=== PATIENT | male | born 1960 | race Hispanic/Latino ===

== ENCOUNTER 2020-10-13 18:07 | Inpatient (IN) | payer OTHER ==
[~2020-10-13 18:07] MED LIST: Iopamidol-370 76% 500 ML 1 ML ONE
--- NOTE | 2020-10-13 19:26 | RAD ---
TWO VIEW CHEST, PA AND LATERAL VIEWS: History: Covid positive. Hypoxia. Comparison: None FINDINGS: There are bilateral confluent infiltrates seen in the periphery of both lungs most prominent in the l zunilda bases. Evidence of bilateral effusions. Heart and mediastinum unremarkable with mild vascular eng orgement. IMPRESSION: Confluent airspace disease involving the periphery of both lungs with consolidation and atelectasis p rominent in the lung bases with evidence of bilateral effusions. Diffuse Covid pneumonia would be evei pected. POS: AGW
[2020-10-13 21:11] LABS: #Eosinphils 0.1 thou/uL (0.0-0.7); #Lymphocytes 0.7 thou/uL (1.20-3.40); #Monocytes 0.3 thou/uL (0.11-0.59); #Neutrophils 12.5 thou/uL (1.40-6.50); %Basophils 0.2 % (0.0-1.0); %Eosinophils 0.5 % (0.0-10.0); %Lymphocytes 5.2 % (21.0-51.0); %Monocytes 2.3 % (0.0-10.0); %Neutrophils 91.8 % (42.0-75.0); Hemoglobin 15.4 g/dL (14.0-18.0); Mean Corpuscular HGB CONC 34.4 g/dL (32.0-36.0); Mean Corpuscular Hemoglobin 32.6 pg (27.0-31.0); Mean Corpuscular Volume 94.9 fL (78.0-98.0); Mean Platelet Volume 6.9 fL (7.4-10.4); Platelet Count 222 thou/uL (130-400); RBC Distribution Width 11.8 % (11.5-14.5); Red Blood Cell (RBC) Count 4.71 mill/uL (4.70-6.10); White Blood Cell (WBC) Count 13.6 thou/uL (4.8-10.8)
[2020-10-13] MEDS ORDERED: Dexamethasone 10 MG/ML VIAL ONE (21:19)
[2020-10-13 21:32] LABS: ALT (SGPT) 96 U/L (8-55); AST (SGOT) 66 U/L (5-34); Albumin 2.6 g/dL (3.4-4.8); Alkaline Phosphatase 296 U/L (40-110); Anion Gap 16 mmol/L (10-20); BUN (Urea Nitrogen) 12 mg/dL (8.4-25.7); CK (CPK) 300 U/L (30-200); Calc. Creatinine Clearance 0 mL/min (70-130); Calcium 7.5 mg/dL (7.8-10.44); Carbon Dioxide 21 mmol/L (23-31); Chloride 98 mmol/L (98-107); Globulin 3.4 g/dL (2.4-3.5); Glucose 259 mg/dL (80-115); Potassium 4.7 mmol/L (3.5-5.1); Sodium 130 mmol/L (136-145)
[2020-10-14 03:44] VITALS: BMI 24.8
--- NOTE | 2020-10-14 05:22 | PDOC.HHP ---
Hospitalist HPI Shortness of breath History of Present Illness: This is a 60-year-old male patient with a history of diabetes mellitus, and hypertension and a recent diagnosis of Covid who presents with worsening shortness of breath and cough Patient was first diagnosed with Covid about 4 weeks ago and he presented to [facility] where he was admitted and discharged. He was discharged on home oxygen on October 02 however for the past few days he has been requiring more and more oxygen to be used with reasonably. His cough is also worsening. EMS was activated and he was found to be hypoxic with his oxygen saturation in the 70s. At presentation however BP was 172/81, pulse 80, respiratory 20, temperature 99.1 saturation 94 on 4 L. His labs showed sodium of 130, bicarb 21 creatinine 0.6. WBC was 13.9 and hemoglobin 15.4. Chest x-ray showed confluent airspace disease with very fearful lungs and consolidation atelectasis prominent in the lung bases with evidence of bilateral pleural effusion. This was arlette to the diffuse Covid pneumonia. He was started on Levaquin for concerns of possible bacterial pneumonia and started on dexamethasone. Hospitalist team consulted for admission Allergies/Adverse Reactions: Allergy/AdvReac Type Severity Reaction Status Date / Time No Known Allergies Allergy Verified 10/14/20 03:46 Home Medications: Medication Instructions Recorded Confirmed Type Benzonatate [Tessalon] 100 mg PO TID 10/14/20 10/14/20 History metFORMIN HCl [Metformin HCl] 500 mg PO BID PRN 10/14/20 10/14/20 History Past History: PMHx: Hypertension, Covid PSHx:None of significance FHx: None of significance Social:No smoking alcohol or drug use history. Hospitalist HPI ROS Constitutional: reports: weakness, malaise. denies: fever, chills, sweats Respiratory: reports: cough, shortness of breath, SOB with excertion. denies: hemoptysis Cardiovascular: denies: chest pain, palpitations, orthopnea, paroxysmal noc. dyspnea Genitourinary: denies: dysuria, frequency, incontinence Musculoskeletal: denies: neck pain, shoulder pain, arm pain Neurological: denies: weakness, numbness, incoordination All other systems reviewed; all pertinent +/- noted in HPI/Subj Hospitalist Exam Vitals: Vital Signs (12 hours) Temp Pulse Resp BP BP Pulse Ox 10/14/20 04:13 90 L 10/14/20 03:51 98.0 F 99 34 H 142/84 H 90 L 10/14/20 03:39 90 L 10/14/20 03:26 97.5 F L 105 H 38 H 165/105 H 77 L Weight Weight 131 lb 6.4 oz General Appearance: awake alert General - other findings: Incessantly cough Eye: PERRL, anicteric sclera ENT: normocephalic atraumatic Heart: RRR, no murmur, no gallops, no rubs Respiratory - other findings: Coarse breath sounds bilaterally. Generalized wheezing. Tachypnea Gastrointestinal: soft, non-tender, non-distended, normal bowel sounds Extremities: no cyanosis, no clubbing Neurological: cranial nerve grossly intact, no weakness, no focal deficits Musculoskeletal: normal tone Psychiatric: normal affect, normal behavior, A&O x 3 Hospitalist Results Result Diagrams: 10/13/20 20:46 10/13/20 20:46 Lab results: Laboratory Last Values WBC 13.6 thou/uL (4.8-10.8) H 10/13/20 20:46 RBC 4.71 mill/uL (4.70-6.10) 10/13/20 20:46 Hgb 15.4 g/dL (14.0-18.0) 10/13/20 20:46 Hct 44.6 % (42.0-52.0) 10/13/20 20:46 MCV 94.9 fL (78.0-98.0) 10/13/20 20:46 MCH 32.6 pg (27.0-31.0) H 10/13/20 20:46 MCHC 34.4 g/dL (32.0-36.0) 10/13/20 20:46 RDW 11.8 % (11.5-14.5) 10/13/20 20:46 Plt Count 222 thou/uL (130-400) 10/13/20 20:46 MPV 6.9 fL (7.4-10.4) L 10/13/20 20:46 Neutrophils % 91.8 % (42.0-75.0) H 10/13/20 20:46 Lymphocytes % 5.2 % (21.0-51.0) L 10/13/20 20:46 Monocytes % 2.3 % (0.0-10.0) 10/13/20 20:46 Eosinophils % 0.5 % (0.0-10.0) 10/13/20 20:46 Basophils % 0.2 % (0.0-1.0) 10/13/20 20:46 Neutrophils # 12.5 thou/uL (1.40-6.50) H 10/13/20 20:46 Lymphocytes # 0.7 thou/uL (1.20-3.40) L 10/13/20 20:46 Monocytes # 0.3 thou/uL (0.11-0.59) 10/13/20 20:46 Eosinophils # 0.1 thou/uL (0.0-0.7) 10/13/20 20:46 Basophils # 0.0 thou/uL (0.0-0.2) 10/13/20 20:46 D-Dimer 12.22 *mcg/mL (0.27-0.43) H 10/13/20 20:46 Sodium 130 mmol/L (136-145) L 10/13/20 20:46 Potassium 4.7 mmol/L (3.5-5.1) 10/13/20 20:46 Chloride 98 mmol/L (98-107) 10/13/20 20:46 Carbon Dioxide 21 mmol/L (23-31) L 10/13/20 20:46 Anion Gap 16 mmol/L (10-20) 10/13/20 20:46 BUN 12 mg/dL (8.4-25.7) 10/13/20 20:46 Creatinine 0.60 mg/dL (0.7-1.3) L 10/13/20 20:46 Estimated GFR (MDRD) Greater than 90 10/13/20 20:46 Glucose 259 mg/dL (80-115) H 10/13/20 20:46 Calcium 7.5 mg/dL (7.8-10.44) L 10/13/20 20:46 Total Bilirubin 1.0 mg/dL (0.2-1.2) 10/13/20 20:46 AST 66 U/L (5-34) H 10/13/20 20:46 ALT 96 U/L (8-55) H 10/13/20 20:46 Alkaline Phosphatase 296 U/L (40-110) H 10/13/20 20:46 Creatine Kinase 300 U/L (30-200) H 10/13/20 20:46 Troponin I 0.011 ng/mL (< 0.028) 10/13/20 20:46 Serum Total Protein 6.0 g/dL (5.8-8.1) 10/13/20 20:46 Albumin 2.6 g/dL (3.4-4.8) L 10/13/20 20:46 Globulin 3.4 g/dL (2.4-3.5) 10/13/20 20:46 Albumin/Globulin Ratio 0.8 g/dL (1.2-2.2) L 10/13/20 20:46 Hospitalist H&P A/P Plan: This is a 60-year-old male patient with a history of hypertension with diagnosed Covid about a month ago presenting with worsening shortness of breath after being discharged from [facility]. Pneumonia due to Covid We will start vitamin C, zinc and steroids Out of the window of remdesivir Consider plasma therapy D-dimer severely elevatedCTA done follow-up to rule out PE Consider ID input for further management. Possible superimposed bacterial pneumonia We will cover him on antibiotics Hyponatremia Likely due to pneumonia We will monitorthis is mild Hyperglycemia Glucose 259 Check A1c Trend CODE STATUSfull code PT prophylaxislevel
--- NOTE | 2020-10-14 08:37 | CT ---
PRELIMINARY REPORT/[facility]/EMERGENCY AFTER HOURS PROCEDURE EXAM: CTA Chest with Intravenous Contrast CLINICAL HISTORY: 60-year-old male presenting with shortness of breath that is worsened over the past several days. Joselyn carey was discharged home from [facility] on 01 September for Covid pneumonia. Patient notes that he began to develop severe shortness of breath and chest pain this evening as well. Patient's oxygen had been turned up to 6 and was supposed to be on for at home and he still felt short of breath. He was found to be hypoxic into the 70s in the waiting room. Patient denies any hemoptysis or history of pulmonary embolism. TECHNIQUE: Axial CTA images of the chest with intravenous contrast. Three-dimensional MIP/volume rendered reform ations were performed. CONTRAST: With; ISOVUE 370,80mL COMPARISON: None provided. FINDINGS: PULMONARY ARTERIES There is no intraluminal filling defect suspicious for PE. AORTA No thoracic aortic aneurysm or dissection. LUNGS There is underlying bronchiectasis and reticular changes compatible with underlying chronic interstit ial disease. Superimposed ill-defined patchy groundglass and solid opacities throughout the visualized lungs are c ompatible with multifocal pneumonia, consistent with COVID-19 pneumonia in the appropriate clinical setting. PLEURAL SPACES Small left pleural effusion. Trace right pleural effusion. HEART AND MEDIASTINUM Mild cardiomegaly. LYMPH NODES Pretracheal lymph node measuring up to 1.1 cm in short axis. BONES No focal osseous abnormality or acute fracture. CHEST WALL AND UPPER ABDOMEN Images through the upper abdomen are unremarkable. The chest wall is unremarkable. IMPRESSION: Underlying chronic interstitial disease including bronchiectasis and reticular changes. Superimposed ill-defined patchy groundglass and solid opacities throughout the visualized lungs are c ompatible with multifocal pneumonia, consistent with COVID-19 pneumonia in the appropriate clinical setting. Small left and trace right pleural effusions. No pulmonary embolism. No thoracic aortic aneurysm or dissection. Mild cardiomegaly. ELECTRONICALLY SIGNED BY: Mary Carmen Hennessy MD Oct 13, 2020 11:38:00 PM TRANSITION RN This report is intended for review by the ordering physician only, in accordance of law. If you recei ve this report in error, please call [facility] at [phone]. FINAL REPORT Emergent after hours CT angiogram thorax with IV contrast and 3-D reconstructions HISTORY: Dyspnea/shortness of breath. COMPARISON: None. IMPRESSION: 1. Chronic interstitial lung changes and areas of mild bronchiectasis predominantly in the lower lobe s with superimposed patchy and groundglass densities throughout the lungs bilaterally which may be related to superimposed atypical pneumonia such as COVID pneumonia in the correct clinical scenario. 2. Small bilateral pleural effusions. 3. No evidence of a pulmonary embolus. 4. Thoracic aorta is normal in caliber without evidence of an aortic dissection. 5. Mild increased in number of mediastinal and bilateral hilar lymph nodes which may be related to re active lymphadenopathy. 6. Hypodense nodule left lobe of thyroid gland measuring 1.7 cm. Follow-up thyroid ultrasound is renny mmended. This finding was discussed with Marcia, charge nurse on the hospital floor on 10/14/2020 at 0834 hours. 7. Borderline cardiomegaly. 8. Findings are in agreement with preliminary report by [facility]. Transcribed Date/Time: 10/14/2020 8:45 AM
[2020-10-14] MEDS ORDERED: FLU VACC QS2020-21(6MOS UP)/PF 60 MCG/0.5 ML SYRINGE IM ONE (09:00)
[2020-10-14] MEDS: Enoxaparin Sodium 40 MG/0.4 ML SYRINGE SC SCH (10:18)
[2020-10-14] MEDS: Dexamethasone 6 MG in Sodium Chloride 0.9% 50 ML IVPB SCH (10:18)
[2020-10-14] MEDS: Ascorbic Acid 500 mg Chewable Tablet PO SCH (10:19)
[2020-10-14] MEDS: Cholecalciferol (Vitamin D3) 400 UNITS TAB PO SCH (10:19)
[2020-10-14] MEDS: Zinc Sulfate 220 MG CAP PO SCH (10:19)
[2020-10-14] MEDS ORDERED: Dextrose 5% in Water 1,000 ML IV PRN (12:26)
[2020-10-14] MEDS ORDERED: HumaLOG 300 UNITS/3 ML VIAL SC PRN (12:26)
[2020-10-14] MEDS ORDERED: Dextrose 50% Abboject 50 ML SYRINGE SLOW IVP PRN (12:26)
--- NOTE | 2020-10-14 13:47 | PDOC.HOSPP ---
- Subjective Encounter Date: 10/14/20 Subjective: Feels better than yesterday. - Objective Vital Signs & Weight: Vital Signs (12 hours) Temp Pulse Resp BP BP Pulse Ox 10/14/20 12:29 98.0 F 107 H 30 H 133/88 94 L 10/14/20 10:43 93 L 10/14/20 09:20 97.1 F L 117 H 32 H 125/70 96 10/14/20 08:00 96 10/14/20 05:20 97.5 F L 89 29 H 144/86 H 98 10/14/20 04:13 90 L 10/14/20 03:51 98.0 F 99 34 H 142/84 H 90 L 10/14/20 03:39 90 L 10/14/20 03:26 97.5 F L 105 H 38 H 165/105 H 77 L Weight Weight 131 lb 6.4 oz I&O: 10/13/20 10/14/20 10/15/20 06:59 06:59 06:59 Intake Total 250 Balance 250 Result Diagrams: 10/13/20 20:46 10/13/20 20:46 Additional Labs: Accuchecks 10/14/20 12:44 POC Glucose 440 H Hospitalist ROS - Medication Medications: Active Medications Generic Name Dose Route Start Last Admin Trade Name Ferq PRN Reason Stop Dose Admin Ascorbic Acid 1,000 mg 10/14/20 09:00 10/14/20 10:19 Ascorbic Acid 500 Mg Chewable Tablet PO 1,000 mg DAILY LOLA Administration Cholecalciferol 400 units 10/14/20 09:00 10/14/20 10:19 Cholecalciferol (Vitamin D3) 400 Units Tab PO 400 units DAILY LOLA Administration Enoxaparin Sodium 40 mg 10/14/20 09:00 10/14/20 10:18 Enoxaparin Sodium 40 Mg/0.4 Ml Syringe SC 40 mg 0900 LOLA Administration Dexamethasone 6 mg/ Sodium 50.6 mls @ 100 mls/hr 10/14/20 09:00 10/14/20 10:18 Chloride IVPB 50.6 mls DAILY LOLA Administration Zinc Sulfate 220 mg 10/14/20 09:00 10/14/20 10:19 Zinc Sulfate 220 Mg Cap PO 220 mg DAILY LOLA Administration Hospitalist Exam Vitals: Vital Signs (12 hours) Temp Pulse Resp BP BP Pulse Ox 10/14/20 12:29 98.0 F 107 H 30 H 133/88 94 L 10/14/20 10:43 93 L 10/14/20 09:20 97.1 F L 117 H 32 H 125/70 96 10/14/20 08:00 96 10/14/20 05:20 97.5 F L 89 29 H 144/86 H 98 10/14/20 04:13 90 L 10/14/20 03:51 98.0 F 99 34 H 142/84 H 90 L 10/14/20 03:39 90 L 10/14/20 03:26 97.5 F L 105 H 38 H 165/105 H 77 L Weight Weight 131 lb 6.4 oz General Appearance: NAD Eye: PERRL, anicteric sclera ENT: normocephalic atraumatic, no oropharyngeal lesions Neck: supple, symmetric, no JVD Heart: RRR, no murmur, no gallops, no rubs Respiratory: rales Gastrointestinal: soft, non-tender, non-distended, normal bowel sounds Extremities: no cyanosis, no clubbing, no edema Skin: normal turgor, no lesions Neurological: cranial nerve grossly intact Hosp A/P (1) Pneumonia due to COVID-19 virus Code(s): U07.1 - COVID-19; J12.82 - PNEUMONIA DUE TO CORONAVIRUS DISEASE 2019 Status: Acute (2) Diabetes Code(s): E11.9 - TYPE 2 DIABETES MELLITUS WITHOUT COMPLICATIONS Status: Acute (3) Hyponatremia Code(s): E87.1 - HYPO-OSMOLALITY AND HYPONATREMIA Status: Acute (4) Rhabdomyolysis Code(s): M62.82 - RHABDOMYOLYSIS Status: Acute - Plan Office today 10/14 Patient is a 60-year-old male who was recently admitted to [facility] for Covid pneumonia and discharged home with oxygen, he was diagnosed with Covid approximately a month ago. He returns our hospital with increased shortness of breath due to worsening of his Covid pneumonia. Pulmonary--- patient does have worsening of his Covid pneumonia, he is started on Decadron, he continues to require high flow oxygen, I will consult pulmonary for further guidance. Renal--- he is hyponatremic I will continue to monitor his sodium. His CK was slightly elevated I will recheck it tomorrow. Endocrinology--- his diabetes is not well controlled he is usually on Metformin, I will start him on insulin sliding scale and Lantus. Patient is on Lovenox for DVT prophylaxis.
--- NOTE | 2020-10-14 14:16 | ULT ---
THYROID ULTRASOUND: HISTORY: Thyroid nodule noted on recent CT ANGIOGRAM OF THE CHEST: FINDINGS: Thyroid isthmus measures 0.49 cm. Right thyroid lobe measures 1.4 x 1.1 x 3.6 cm. Left thyroid lobe measures 1.8 x 1.7 x 3.4 cm. Thyroid nodules: Right thyroid Lobe: No significant nodules. Left thyroid Lobe: There is a predominantly solid nodule in the left thyroid lobe measuring 1.5 x 1.6 x 1.8 cm. Margins are well circumscribed. The nodule is isoechoic. Additional smaller hypoechoic nodule in the super ior pole left thyroid lobe measuring 0.3 x 0.3 x 0.2 cm. IMPRESSION: Solid nodule in the left thyroid lobe. TIRADS calculator score TR3: mildly suspicious. Followup dejuan ging in 1 year is recommended. POS: PPP
[2020-10-14] MEDS: HumaLOG 300 UNITS/3 ML VIAL SC PRN (18:54)
[2020-10-14] MEDS: Insulin Glargine 20 UNITS in Pre-Filled Syringe 1 EACH SC SCH (21:54)
[2020-10-15] MEDS: HumaLOG 300 UNITS/3 ML VIAL SC PRN ×3 (04:53→18:04)
[2020-10-15 05:12] LABS: #Lymphocytes 1.7 thou/uL (1.20-3.40); #Monocytes 0.9 thou/uL (0.11-0.59); #Neutrophils 14.6 thou/uL (1.40-6.50); %Basophils 0.1 % (0.0-1.0); %Eosinophils 0.1 % (0.0-10.0); %Lymphocytes 9.9 % (21.0-51.0); %Monocytes 5.1 % (0.0-10.0); %Neutrophils 84.8 % (42.0-75.0); Hemoglobin 13.9 g/dL (14.0-18.0); Mean Corpuscular HGB CONC 33.6 g/dL (32.0-36.0); Mean Corpuscular Hemoglobin 31.8 pg (27.0-31.0); Mean Corpuscular Volume 94.8 fL (78.0-98.0); Mean Platelet Volume 6.7 fL (7.4-10.4); Platelet Count 254 thou/uL (130-400); RBC Distribution Width 11.9 % (11.5-14.5); Red Blood Cell (RBC) Count 4.35 mill/uL (4.70-6.10); White Blood Cell (WBC) Count 17.3 thou/uL (4.8-10.8)
[2020-10-15 05:33] LABS: Anion Gap 11 mmol/L (10-20); BUN (Urea Nitrogen) 26 mg/dL (8.4-25.7); CK (CPK) 79 U/L (30-200); Calc. Creatinine Clearance 101 mL/min (70-130); Calcium 8.1 mg/dL (7.8-10.44); Carbon Dioxide 23 mmol/L (23-31); Chloride 104 mmol/L (98-107); Glucose 282 mg/dL (80-115); Potassium 4.2 mmol/L (3.5-5.1); Sodium 134 mmol/L (136-145)
[2020-10-15] MEDS: Ascorbic Acid 500 mg Chewable Tablet PO SCH (09:48)
[2020-10-15] MEDS: Enoxaparin Sodium 40 MG/0.4 ML SYRINGE SC SCH (09:49)
[2020-10-15] MEDS: Zinc Sulfate 220 MG CAP PO SCH (09:49)
[2020-10-15] MEDS: Cholecalciferol (Vitamin D3) 400 UNITS TAB PO SCH (09:49)
[2020-10-15] MEDS: Dexamethasone 6 MG in Sodium Chloride 0.9% 50 ML IVPB SCH (09:50)
[2020-10-15] MEDS: Insulin Glargine 20 UNITS in Pre-Filled Syringe 1 EACH SC SCH ×2 (10:18→20:47)
--- NOTE | 2020-10-15 11:27 | CON ---
DATE OF CONSULTATION: 10/15/2020 REASON FOR CONSULTATION: COVID pneumonia. HISTORY OF PRESENT ILLNESS: Mr. Cardoza is a 60-year-old male, who was admitted to [facility] on September 09 with COVID pneumonia. He says his test was positive on the . He stayed at that facility for about a week before being discharged on oxygen 5 L nasal cannula. He came back to the hospital because he was concerned that he was not getting better. He says his O2 saturation at home was running lower than it had been when he was initially released from the hospital. PAST MEDICAL HISTORY: Hypertension. PAST SURGICAL HISTORY: None. SOCIAL HISTORY: He smoked up until about 20 years ago. 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 Does not use illicit drugs. Does not consume any significant quantity of alcohol. FAMILY MEDICAL HISTORY: Unremarkable. ALLERGIES: NONE. REVIEW OF SYSTEMS: Denies any fever or chills. Has had a cough and congestion. No chest pain, hematemesis, melena, hematochezia, hematuria, or dysuria. PHYSICAL EXAMINATION: VITAL SIGNS: Temperature 98.3, pulse 79, respirations 24, O2 sats 97% on 60 L/minute high-flow oxygen, and blood pressure 134/86. He is sitting in bed, is in no acute distress. HEENT: Unremarkable. NECK: No adenopathy or JVD. LUNGS: He has diffuse inspiratory crackles bilaterally. CARDIAC: S1 and S2. Regular. ABDOMEN: Soft and nontender. EXTREMITIES: No clubbing, cyanosis, or edema. LABORATORY DATA: White blood cell count 17.3, hematocrit 41, and platelet count 254. D-dimer 12.22. Sodium 134, potassium 4.2, chloride 104, CO2 of 23, BUN 26, creatinine 0.6, glucose 282. His CT of the chest shows diffuse fibrotic changes especially in the periphery. This is consistent with the later stages of someone who has had COVID pneumonia. ASSESSMENT: COVID pneumonia-first developed about one month ago and now has residual findings of fibrotic lung disease from that. He had no evidence of pulmonary embolism on CT pulmonary angiogram obtained here. RECOMMENDATIONS: This is a tough situation, I agree with the empiric antibiotics in case he could have a secondary infection on top of this. However, this is probably just all COVID, and unfortunately, it will just take time for it to get better. I am not sure steroids would be helpful at all at this point, and I would advocate stopping that completely and probably trying some colchicine and see if that helps. Job ID: [id number]
--- NOTE | 2020-10-15 11:48 | PDOC.HOSPP ---
- Subjective Encounter Date: 10/15/20 Subjective: Patient is doing much better today. - Objective Vital Signs & Weight: Vital Signs (12 hours) Temp Pulse Resp BP Pulse Ox 10/15/20 07:30 98.3 F 79 24 H 134/86 96 10/15/20 04:20 97.5 F L 80 23 H 132/83 95 10/15/20 03:13 96 Weight Weight 131 lb 6.4 oz I&O: 10/14/20 10/15/20 10/16/20 06:59 06:59 06:59 Intake Total 930 Output Total 1680 Balance -750 Result Diagrams: 10/15/20 05:02 10/15/20 05:02 Additional Labs: Accuchecks 10/15/20 10/15/20 10/14/20 10:25 04:28 20:16 POC Glucose 307 H 268 H 410 H 10/14/20 10/14/20 17:05 12:44 POC Glucose 385 H 440 H Hospitalist ROS - Medication Medications: Active Medications Generic Name Dose Route Start Last Admin Trade Name Freq PRN Reason Stop Dose Admin Ascorbic Acid 1,000 mg 10/14/20 09:00 10/15/20 09:48 Ascorbic Acid 500 Mg Chewable Tablet PO 1,000 mg DAILY LOLA Administration Cholecalciferol 400 units 10/14/20 09:00 10/15/20 09:49 Cholecalciferol (Vitamin D3) 400 Units Tab PO 400 units DAILY LOLA Administration Enoxaparin Sodium 40 mg 10/14/20 09:00 10/15/20 09:49 Enoxaparin Sodium 40 Mg/0.4 Ml Syringe SC 40 mg 0900 LOLA Administration Insulin Glargine 20 units/ 0.2 mls @ 0 mls/hr 10/14/20 21:00 10/14/20 21:54 Miscellaneous Medication SC 0.2 mls HS LOLA Administration Insulin Glargine 20 units/ 0.2 mls @ 0 mls/hr 10/15/20 09:00 10/15/20 10:18 Miscellaneous Medication SC 0.2 mls QAM LOLA Administration Insulin Human Lispro 0 units 10/14/20 13:43 10/15/20 04:53 Humalog 300 Units/3 Ml Vial SC 9 unit .AGGRESSIVE SLIDING PRN Administration Aggressive Correctional Scale Sodium Chloride 10 ml 10/15/20 09:00 10/15/20 09:49 Flush - Normal Saline 10 Ml Syringe IVF 10 ml Q12HR LOLA Administration Zinc Sulfate 220 mg 10/14/20 09:00 10/15/20 09:49 Zinc Sulfate 220 Mg Cap PO 220 mg DAILY LOLA Administration Hospitalist Exam Vitals: Vital Signs (12 hours) Temp Pulse Resp BP Pulse Ox 10/15/20 07:30 98.3 F 79 24 H 134/86 96 10/15/20 04:20 97.5 F L 80 23 H 132/83 95 10/15/20 03:13 96 Weight Weight 131 lb 6.4 oz General Appearance: NAD, awake alert Eye: PERRL ENT: normocephalic atraumatic Neck: supple, symmetric Heart: RRR, no murmur, no gallops, murmur present Respiratory: CTAB, no wheezes, no rales Gastrointestinal: soft, non-tender, non-distended Extremities: no cyanosis, no clubbing Hosp A/P (1) Pneumonia due to COVID-19 virus Code(s): U07.1 - COVID-19; J12.82 - PNEUMONIA DUE TO CORONAVIRUS DISEASE 2019 Status: Acute (2) Diabetes Code(s): E11.9 - TYPE 2 DIABETES MELLITUS WITHOUT COMPLICATIONS Status: Acute (3) Hyponatremia Code(s): E87.1 - HYPO-OSMOLALITY AND HYPONATREMIA Status: Acute (4) Rhabdomyolysis Code(s): M62.82 - RHABDOMYOLYSIS Status: Acute - Plan Plan for today 10/14 Patient is a 60-year-old male who was recently admitted to [facility] for Covid pneumonia and discharged home with oxygen, he was diagnosed with Covid approximately a month ago. He returns our hospital with increased shortness of breath due to worsening of his Covid pneumonia. Pulmonary--- patient does have worsening of his Covid pneumonia, he is started on Decadron, he continues to require high flow oxygen, I will consult pulmonary for further guidance. Renal--- he is hyponatremic I will continue to monitor his sodium. His CK was slightly elevated I will recheck it tomorrow. Endocrinology--- his diabetes is not well controlled he is usually on Metformin, I will start him on insulin sliding scale and Lantus. Patient is on Lovenox for DVT prophylaxis. Plan for today 10/15 Pulmonary--- patient was seen by pulmonology today, he appears to be doing much better today, Decadron was stopped, continue the current antibiotics. Renal--- his electrolytes today improve. Endocrinology--- he is currently on Lantus, I added the dose in the morning, his glycemic levels should improve with stopping the Decadron. Patient is on Lovenox for DVT prophylaxis. We will consider consulting physical therapy tomorrow hopefully he will be off the high flow.
--- NOTE | 2020-10-15 20:20 | PQF ---
CLINICAL DOCUMENTATION CLARIFICATION FORM: Dear Dr. Paul Date: 10/15/20 Please exercise your independent, professional judgment in responding to the clarification form. Clinical indicators are provided on the bottom of this form for your review. Please check appropriate box(es): [ y ] Acute Respiratory Failure: [ y ] with Hypoxia [ ] with Hypercapnia [ ] Acute On Chronic Respiratory Failure: [ ] with Hypoxia [ ] with Hypercapnia [ ] Chronic Respiratory Failure only [ ] with Hypoxia [ ] with Hypercapnia [ ] Other diagnosis [ ] Unable to determine In addition, please specify: Present on Admission (POA): [y ] Yes [ ] No [ ] Unable to determine For continuity of documentation, please document condition throughout progress notes and discharge summary. Thank You. To be completed by CDI/Coding staff for physician review: CLINICAL INDICATORS - SIGNS / SYMPTOMS / LABS / RESULTS AND LOCATION IN MR ER NOTE: "FOUND TO BE HYPOXIC INTO THE 70s IN THE WAITING ROOM" PULSE 108 RR 40 RISK FACTORS/ RESULTS AND LOCATION IN MR COVID PNEUMONIA (H&P) TREATMENTS / RESULTS AND LOCATION IN IV LEVAQUIN (ER) DEXAMETHASONE (ER-10/15) IV CEFEPIME (10/15) PULMONARY CONSULT - CRYS NONREBREATHER MASK IN ER REQUIRING HIGH FLOW OXYGEN (PN 10/15- KIET) Acute Respiratory Failure: ABG pH < 7.35 or > 7.45; Decreased oxygen saturation (<90% room air or < 95% on oxygen); PCO2 > 50 mm Hg; PO2 < 60 mm Hg; Labored or rapid respirations ARDS: Dx Criteria [Ridgely ARDS]: Respiratory symptoms within one week of a known clinical insult (e.g. shock, infection, surgery, trauma) Bilateral opacities in CXR/Chest CT not due to CHF or fluid CDS Signature: Imani Correa RN Phone #: [phone] Date: 10/15/20 This is a permanent part of the Medical Record [facility]
--- NOTE | 2020-10-15 20:28 | PQF ---
CLINICAL DOCUMENTATION CLARIFICATION FORM: Dear Dr. Paul Date: 10/15/20 Please exercise your independent, professional judgment in responding to the clarification form. Clinical indicators are provided on the bottom of this form for your review. Please check appropriate box(es): [ y ] Sepsis due to: covid 19 possibly superimposed bacterial pneumonia [ ] Severe sepsis with associated acute organ dysfunction: [ ] Acute Respiratory Failure [ ] Acute Kidney injury w/o ATN [ ] Acute Kidney Injury w ATN [ ] Encephalopathy (metabolic) (septic) [ ] Disseminated Intravascular Coagulopathy (DIC) [ ] Hepatic Failure [ ] Additional/Other: please specify: [ ] Localized infection without sepsis [ ] SIRS due to non-infectious process (please specify etiology) [ ] with organ dysfunction [ ] without organ dysfunction [ ] Other diagnosis [ ] Unable to determine In addition, please specify: Present on Admission (POA): [ y ] Yes [ ] No [ ] Unable to determine For continuity of documentation, please document condition throughout progress notes and discharge summary. Thank You. To be completed by CDI/Coding staff for physician review: CLINICAL INDICATORS - SIGNS / SYMPTOMS / LABS / RESULTS AND LOCATION IN MR WBC 10/13: 13.6 WBC 10/15: 17.3 CRP 10/14: 11.90 PULSE 108 RR 40 RISK FACTORS / RESULTS AND LOCATION IN MR COVID PNEUMONIA (H&P) TREATMENTS / RESULTS AND LOCATION IN MR IV LEVAQUIN (ER) DEXAMETHASONE (ER-10/15) IV CEFEPIME (10/15) PULMONARY CONSULT NONREBREATHER MASK IN ER HIGH FLOW OXYGEN (ON 10/15- ) BLOOD CULTURES 10/14 CDS Signature: Imani Correa RN Phone #: [phone] Date: 10/15/20 This is a permanent part of the Medical Record [facility]
[2020-10-15] MEDS: Cefepime 1 GM in Sodium Chloride 0.9% 100 ML IVPB SCH (20:49)
[2020-10-15] MEDS: Colchicine 0.3 MG TAB PO SCH (22:38)
[2020-10-16] MEDS: Cholecalciferol (Vitamin D3) 400 UNITS TAB PO SCH (09:39)
[2020-10-16] MEDS: Enoxaparin Sodium 40 MG/0.4 ML SYRINGE SC SCH (09:39)
[2020-10-16] MEDS: Ascorbic Acid 500 mg Chewable Tablet PO SCH (09:39)
[2020-10-16] MEDS: Zinc Sulfate 220 MG CAP PO SCH (09:39)
[2020-10-16] MEDS: Cefepime 1 GM in Sodium Chloride 0.9% 100 ML IVPB SCH ×2 (09:40→22:33)
[2020-10-16] MEDS ORDERED: Colchicine 0.3 MG TAB PO SCH (09:45)
[2020-10-16] MEDS: Insulin Glargine 20 UNITS in Pre-Filled Syringe 1 EACH SC SCH ×2 (09:48→22:35)
[2020-10-16] MEDS: Colchicine 0.3 MG TAB PO SCH ×2 (09:48→22:35)
[2020-10-16] MEDS: HumaLOG 300 UNITS/3 ML VIAL SC PRN (12:08)
--- NOTE | 2020-10-16 19:41 | PDOC.HOSPP ---
- Subjective Encounter Date: 10/16/20 Subjective: He continues to improve still reports some shortness of breath when he speaks. - Objective Vital Signs & Weight: Vital Signs (12 hours) Temp Pulse Resp BP Pulse Ox 10/16/20 17:32 78 161/104 H 10/16/20 15:37 98.7 F 76 20 180/93 H 98 10/16/20 13:47 97.7 F 81 20 140/87 97 10/16/20 12:09 95 10/16/20 10:09 100 10/16/20 08:43 98.9 F 82 20 150/93 H 92 L Weight Weight 131 lb 6.4 oz I&O: 10/15/20 10/16/20 10/17/20 06:59 06:59 06:59 Intake Total 930 1650 720 Output Total 1680 900 Balance -750 1650 -180 Result Diagrams: 10/15/20 05:02 10/15/20 05:02 Additional Labs: Accuchecks 10/16/20 10/16/20 10/16/20 16:52 10:47 05:07 POC Glucose 115 H 205 H 111 H 10/15/20 20:42 POC Glucose 230 H Hospitalist ROS - Medication Medications: Active Medications Generic Name Dose Route Start Last Admin Trade Name Freq PRN Reason Stop Dose Admin Ascorbic Acid 1,000 mg 10/14/20 09:00 10/16/20 09:39 Ascorbic Acid 500 Mg Chewable Tablet PO 1,000 mg DAILY LOLA Administration Cholecalciferol 400 units 10/14/20 09:00 10/16/20 09:39 Cholecalciferol (Vitamin D3) 400 Units Tab PO 400 units DAILY LOLA Administration Colchicine 0.3 mg 10/15/20 21:00 10/16/20 09:48 Colchicine 0.3 Mg Tab PO 0.3 mg BID LOLA Administration Enoxaparin Sodium 40 mg 10/14/20 09:00 10/16/20 09:39 Enoxaparin Sodium 40 Mg/0.4 Ml Syringe SC 40 mg 0900 LOLA Administration Insulin Glargine 20 units/ 0.2 mls @ 0 mls/hr 10/14/20 21:00 10/15/20 20:47 Miscellaneous Medication SC 0.2 mls HS LOLA Administration Insulin Glargine 20 units/ 0.2 mls @ 0 mls/hr 10/15/20 09:00 10/16/20 09:48 Miscellaneous Medication SC 0.2 mls QAM LOLA Administration Cefepime HCl 1 gm/ Sodium 100 mls @ 200 mls/hr 10/15/20 21:00 10/16/20 09:40 Chloride IVPB 100 mls Q12HR LOLA Administration Insulin Human Lispro 0 units 10/14/20 13:43 10/16/20 12:08 Humalog 300 Units/3 Ml Vial SC 6 unit .AGGRESSIVE SLIDING PRN Administration Aggressive Correctional Scale Sodium Chloride 10 ml 10/15/20 09:00 10/16/20 09:39 Flush - Normal Saline 10 Ml Syringe IVF 10 ml Q12HR LOLA Administration Zinc Sulfate 220 mg 10/14/20 09:00 10/16/20 09:39 Zinc Sulfate 220 Mg Cap PO 220 mg DAILY LOLA Administration Hospitalist Exam Vitals: Vital Signs (12 hours) Temp Pulse Resp BP Pulse Ox 10/16/20 17:32 78 161/104 H 10/16/20 15:37 98.7 F 76 20 180/93 H 98 10/16/20 13:47 97.7 F 81 20 140/87 97 10/16/20 12:09 95 10/16/20 10:09 100 10/16/20 08:43 98.9 F 82 20 150/93 H 92 L Weight Weight 131 lb 6.4 oz General Appearance: NAD Eye: PERRL ENT: normocephalic atraumatic Neck: supple, symmetric Heart: RRR, no murmur Respiratory: CTAB, no wheezes, no rales Gastrointestinal: soft, non-tender, non-distended Hosp A/P (1) Pneumonia due to COVID-19 virus Code(s): U07.1 - COVID-19; J12.82 - PNEUMONIA DUE TO CORONAVIRUS DISEASE 2019 Status: Acute (2) Diabetes Code(s): E11.9 - TYPE 2 DIABETES MELLITUS WITHOUT COMPLICATIONS Status: Acute (3) Hyponatremia Code(s): E87.1 - HYPO-OSMOLALITY AND HYPONATREMIA Status: Acute (4) Rhabdomyolysis Code(s): M62.82 - RHABDOMYOLYSIS Status: Acute - Plan Plan for 10/14 Patient is a 60-year-old male who was recently admitted to [facility] for Covid pneumonia and discharged home with oxygen, he was diagnosed with Covid ap proximately a month ago. He returns our hospital with increased shortness of breath due to worsening of his Covid pneumonia. Pulmonary--- patient does have worsening of his Covid pneumonia, he is started on Decadron, he continues to require high flow oxygen, I will consult pulmonary for further guidance. Renal--- he is hyponatremic I will continue to monitor his sodium. His CK was slightly elevated I will recheck it tomorrow. Endocrinology--- his diabetes is not well controlled he is usually on Metformin, I will start him on insulin sliding scale and Lantus. Patient is on Lovenox for DVT prophylaxis. Plan for today 10/15 Pulmonary--- patient was seen by pulmonology today, he appears to be doing much better today, Decadron was stopped, continue the current antibiotics. Renal--- his electrolytes today improve. Endocrinology--- he is currently on Lantus, I added the dose in the morning, his glycemic levels should improve with stopping the Decadron. Patient is on Lovenox for DVT prophylaxis. We will consider consulting physical therapy tomorrow hopefully he will be off the high flow. Plan for today 10/16 Patient continues to improve, his glycemia is not very well controlled still, I will restart him on his Metformin and continue with the Lantus, I did consult physical therapy to see him since he is now on a nasal cannula. Tomorrow I will give him a lab holiday , since his blood work has been stable.
[2020-10-17] MEDS ORDERED: Non-Formulary Item 1 EACH (Metformin Hcl [Metformin Hcl] 1,000 MG Tablet) PO SCH (08:00)
[2020-10-17] MEDS: Cefepime 1 GM in Sodium Chloride 0.9% 100 ML IVPB SCH ×2 (08:55→21:30)
[2020-10-17] MEDS: Ascorbic Acid 500 mg Chewable Tablet PO SCH (08:55)
[2020-10-17] MEDS: Colchicine 0.3 MG TAB PO SCH ×2 (08:56→21:31)
[2020-10-17] MEDS: Zinc Sulfate 220 MG CAP PO SCH (08:56)
[2020-10-17] MEDS: Enoxaparin Sodium 40 MG/0.4 ML SYRINGE SC SCH ×2 (08:56→21:31)
[2020-10-17] MEDS: Cholecalciferol (Vitamin D3) 400 UNITS TAB PO SCH (08:56)
[2020-10-17] MEDS: Insulin Glargine 20 UNITS in Pre-Filled Syringe 1 EACH SC SCH ×2 (08:58→22:35)
[2020-10-17 10:18] LABS: #Basophils 0.1 thou/uL (0.0-0.2); #Eosinphils 0.2 thou/uL (0.0-0.7); #Lymphocytes 1.4 thou/uL (1.20-3.40); #Monocytes 0.6 thou/uL (0.11-0.59); #Neutrophils 7.8 thou/uL (1.40-6.50); %Basophils 1.1 % (0.0-1.0); %Lymphocytes 14.2 % (21.0-51.0); %Monocytes 6.3 % (0.0-10.0); %Neutrophils 76.6 % (42.0-75.0); Hemoglobin 15.1 g/dL (14.0-18.0); Mean Corpuscular HGB CONC 34.6 g/dL (32.0-36.0); Mean Corpuscular Hemoglobin 32.8 pg (27.0-31.0); Mean Corpuscular Volume 94.7 fL (78.0-98.0); Mean Platelet Volume 6.6 fL (7.4-10.4); Platelet Count 262 thou/uL (130-400); RBC Distribution Width 11.8 % (11.5-14.5); Red Blood Cell (RBC) Count 4.62 mill/uL (4.70-6.10); White Blood Cell (WBC) Count 10.1 thou/uL (4.8-10.8)
[2020-10-17 10:36] LABS: Anion Gap 11 mmol/L (10-20); BUN (Urea Nitrogen) 13 mg/dL (8.4-25.7); Calc. Creatinine Clearance 126 mL/min (70-130); Carbon Dioxide 24 mmol/L (23-31); Chloride 99 mmol/L (98-107); Glucose 106 mg/dL (80-115); Sodium 130 mmol/L (136-145)
--- NOTE | 2020-10-17 15:55 | EKG ---
Test Reason : SOB Blood Pressure : / mmHG Vent. Rate : 107 BPM Atrial Rate : 107 BPM P-R Int : 156 ms QRS Dur : 078 ms QT Int : 340 ms P-R-T Axes : 024 -05 023 degrees QTc Int : 453 ms Sinus tachycardia Otherwise normal ECG Confirmed by SHARI KENYON ([id number]), digital editor SERGO THORNTON ([id number]) on 10/17/2020 3:55:16 PM Referred By: Confirmed By:SHARI KENYON
[2020-10-17] MEDS: metFORMIN 500 MG TAB PO SCH (16:42)
[2020-10-17] MEDS: HumaLOG 300 UNITS/3 ML VIAL SC PRN (16:47)
--- NOTE | 2020-10-17 17:11 | PDOC.HOSPP ---
- Subjective Encounter Date: 10/17/20 (f/u acute resp failure) Encounter Time: 17:09 Subjective: Pt reports his breathing does not feel as good today as yesterday. He is back on high flow oxygen. He denies any cough. He denies n/v/abd pain/diarrhea. - Objective Vital Signs & Weight: Vital Signs (12 hours) Temp Pulse Pulse Resp BP BP BP 10/17/20 16:00 98.6 F 98 20 156/78 H 10/17/20 15:25 125 H 167/101 H 198/120 H 10/17/20 08:35 98.1 F 89 28 H 148/93 H Pulse Ox Pulse Ox Pulse Ox 10/17/20 16:00 97 10/17/20 15:25 100 94 L 10/17/20 08:35 97 Weight Weight 131 lb 6.4 oz I&O: 10/16/20 10/17/20 10/18/20 06:59 06:59 06:59 Intake Total 1650 720 Output Total 900 950 Balance 1650 -180 -950 Result Diagrams: 10/17/20 09:58 10/17/20 09:58 Additional Labs: Accuchecks 10/17/20 10/17/20 10/17/20 10:59 06:18 05:57 POC Glucose 135 H 137 H 77 10/16/20 10/16/20 20:24 16:52 POC Glucose 155 H 115 H EKG Reviewed by me: Yes (tele - sinus 60-90's) Hospitalist ROS - Medication Medications: Active Medications Generic Name Dose Route Start Last Admin Trade Name Cynthia PRN Reason Stop Dose Admin Ascorbic Acid 1,000 mg 10/14/20 09:00 10/17/20 08:55 Ascorbic Acid 500 Mg Chewable Tablet PO 1,000 mg DAILY LOLA Administration Cholecalciferol 400 units 10/14/20 09:00 10/17/20 08:56 Cholecalciferol (Vitamin D3) 400 Units Tab PO 400 units DAILY LOLA Administration Colchicine 0.3 mg 10/15/20 21:00 10/17/20 08:56 Colchicine 0.3 Mg Tab PO 0.3 mg BID LOLA Administration Enoxaparin Sodium 40 mg 10/14/20 09:00 10/17/20 08:56 Enoxaparin Sodium 40 Mg/0.4 Ml Syringe SC 40 mg 0900 LOLA Administration Insulin Glargine 20 units/ 0.2 mls @ 0 mls/hr 10/14/20 21:00 10/16/20 22:35 Miscellaneous Medication SC 0.2 mls HS LOLA Administration Insulin Glargine 20 units/ 0.2 mls @ 0 mls/hr 10/15/20 09:00 10/17/20 08:58 Miscellaneous Medication SC Not Given QAM LOLA Cefepime HCl 1 gm/ Sodium 100 mls @ 200 mls/hr 10/15/20 21:00 10/17/20 08:55 Chloride IVPB 100 mls Q12HR LOLA Administration Insulin Human Lispro 0 units 10/14/20 13:43 10/17/20 16:47 Humalog 300 Units/3 Ml Vial SC 11 unit .AGGRESSIVE SLIDING PRN Administration Aggressive Correctional Scale Metformin HCl 500 mg 10/17/20 17:00 10/17/20 16:42 Metformin 500 Mg Tab PO 500 mg BID-WM LOLA Administration Sodium Chloride 10 ml 10/15/20 09:00 10/17/20 08:57 Flush - Normal Saline 10 Ml Syringe IVF 10 ml Q12HR LOLA Administration Zinc Sulfate 220 mg 10/14/20 09:00 10/17/20 08:56 Zinc Sulfate 220 Mg Cap PO 220 mg DAILY LOLA Administration Hospitalist Exam Vitals: Vital Signs (12 hours) Temp Pulse Pulse Resp BP BP BP 10/17/20 16:00 98.6 F 98 20 156/78 H 10/17/20 15:25 125 H 167/101 H 198/120 H 10/17/20 08:35 98.1 F 89 28 H 148/93 H Pulse Ox Pulse Ox Pulse Ox 10/17/20 16:00 97 10/17/20 15:25 100 94 L 10/17/20 08:35 97 Weight Weight 131 lb 6.4 oz General Appearance: NAD Heart: RRR, no murmur Respiratory: no wheezes, no ronchi Respiratory - other findings: faint rales in left base Gastrointestinal: soft, non-tender, non-distended, normal bowel sounds Extremities: no cyanosis, no clubbing, no edema Psychiatric: normal affect Hosp A/P (1) Acute respiratory failure due to COVID-19 Code(s): U07.1 - COVID-19; J96.00 - ACUTE RESPIRATORY FAILURE, UNSP W HYPOXIA OR HYPERCAPNIA Status: Acute (2) Diabetes Code(s): E11.9 - TYPE 2 DIABETES MELLITUS WITHOUT COMPLICATIONS Status: Chronic Qualifiers: Diabetes mellitus type: type 2 Diabetes mellitus intermediate insulin use: without long term care phlebotomist use (3) Hyponatremia Code(s): E87.1 - HYPO-OSMOLALITY AND HYPONATREMIA Status: Acute (4) Pneumonia due to COVID-19 virus Code(s): U07.1 - COVID-19; J12.82 - PNEUMONIA DUE TO CORONAVIRUS DISEASE 2019 Status: Acute - Plan Acute resp failure secondary to covid pneumonia in the sub-acute phase with increased oxygen use - appreciate Pulm consult - on cefepime - continue - resume dexamethasone - recheck inflammatory markers in AM DM - blood sugar control improved. - low blood sugar of 77 this morning - d/c AM lantus - with the initiation of steroids, will continue the evening lantus. Most recent blood sugar 306 Hyponatremia - stable, monitor dvt prophy - lovenox - will increase to BID due to increased risk of VTE with COVID gi prophy - will add ppi while on steroids code status full reviewed plan of care with patient through the hospital estate tax examiner system, no questions or further needs at end of eval.
[2020-10-17] MEDS ORDERED: Dexamethasone 4 mg/ml Vial SLOW IVP SCH (18:00)
[2020-10-18 05:18] LABS: #Lymphocytes 1.5 thou/uL (1.20-3.40); #Monocytes 0.4 thou/uL (0.11-0.59); #Neutrophils 7.6 thou/uL (1.40-6.50); %Basophils 0.1 % (0.0-1.0); %Eosinophils 0.4 % (0.0-10.0); %Lymphocytes 15.5 % (21.0-51.0); %Monocytes 3.9 % (0.0-10.0); Hemoglobin 15.1 g/dL (14.0-18.0); Mean Corpuscular HGB CONC 35.3 g/dL (32.0-36.0); Mean Corpuscular Hemoglobin 33.7 pg (27.0-31.0); Mean Corpuscular Volume 95.5 fL (78.0-98.0); Mean Platelet Volume 7.2 fL (7.4-10.4); Platelet Count 269 thou/uL (130-400); RBC Distribution Width 11.7 % (11.5-14.5); Red Blood Cell (RBC) Count 4.49 mill/uL (4.70-6.10); White Blood Cell (WBC) Count 9.5 thou/uL (4.8-10.8)
[2020-10-18 05:31] LABS: Anion Gap 12 mmol/L (10-20); BUN (Urea Nitrogen) 13 mg/dL (8.4-25.7); CRP (Inflammatory) 3.22 mg/dL (= or < 0.5); Calc. Creatinine Clearance 121 mL/min (70-130); Carbon Dioxide 23 mmol/L (23-31); Chloride 98 mmol/L (98-107); Glucose 209 mg/dL (80-115); Potassium 4.5 mmol/L (3.5-5.1); Sodium 128 mmol/L (136-145)
[2020-10-18] MEDS: HumaLOG 300 UNITS/3 ML VIAL SC PRN ×3 (06:23→16:48)
[2020-10-18] MEDS: Ascorbic Acid 500 mg Chewable Tablet PO SCH (08:08)
[2020-10-18] MEDS: Zinc Sulfate 220 MG CAP PO SCH (08:09)
[2020-10-18] MEDS: Cholecalciferol (Vitamin D3) 400 UNITS TAB PO SCH (08:09)
[2020-10-18] MEDS: Enoxaparin Sodium 40 MG/0.4 ML SYRINGE SC SCH ×2 (08:09→20:23)
[2020-10-18] MEDS: Colchicine 0.3 MG TAB PO SCH ×2 (08:09→20:25)
[2020-10-18] MEDS: metFORMIN 500 MG TAB PO SCH (08:09)
[2020-10-18] MEDS: Cefepime 1 GM in Sodium Chloride 0.9% 100 ML IVPB SCH ×2 (08:10→20:26)
[2020-10-18] MEDS ORDERED: Iopamidol-370 76% 500 ML 1 ML ONE (09:33)
--- NOTE | 2020-10-18 11:24 | PDOC.HOSPP ---
- Subjective Encounter Date: 10/18/20 (f/u acute resp failure) Encounter Time: 11:23 Subjective: Pt reports feeling short of breath with eating and has to stop or slow down. His breathing is about the same as yesterday, is requiring more oxygen. He reports this is a big difference compared to 2 days ago - his daughter agrees by phone. She translated per the patient's request. - Objective Vital Signs & Weight: Vital Signs (12 hours) Temp Pulse Resp BP Pulse Ox 10/18/20 08:00 98.1 F 94 20 159/100 H 96 10/18/20 04:27 100 10/18/20 04:00 98.1 F 90 20 115/82 100 10/18/20 00:22 97.9 F 99 20 138/88 98 Weight Weight 131 lb 6.4 oz I&O: 10/17/20 10/18/20 10/19/20 06:59 06:59 06:59 Intake Total 720 Output Total 900 950 Balance -180 -950 Result Diagrams: 10/18/20 04:27 10/18/20 04:27 Additional Labs: Accuchecks 10/18/20 10/17/20 10/17/20 05:45 20:37 16:44 POC Glucose 172 H 128 H 314 H 10/17/20 10:59 POC Glucose 135 H EKG Reviewed by me: Yes (tele - sinus 80-100s) Hospitalist ROS - Medication Medications: Active Medications Generic Name Dose Route Start Last Admin Trade Name Freq PRN Reason Stop Dose Admin Ascorbic Acid 1,000 mg 10/14/20 09:00 10/18/20 08:08 Ascorbic Acid 500 Mg Chewable Tablet PO 1,000 mg DAILY LOLA Administration Cholecalciferol 400 units 10/14/20 09:00 10/18/20 08:09 Cholecalciferol (Vitamin D3) 400 Units Tab PO 400 units DAILY LOLA Administration Colchicine 0.3 mg 10/15/20 21:00 10/18/20 08:09 Colchicine 0.3 Mg Tab PO 0.3 mg BID LOLA Administration Dexamethasone 6 mg 10/17/20 18:00 10/17/20 17:20 Dexamethasone 4 Mg/Ml Vial SLOW IVP 6 mg Q24HR LOLA Administration Enoxaparin Sodium 40 mg 10/17/20 21:00 10/18/20 08:09 Enoxaparin Sodium 40 Mg/0.4 Ml Syringe SC 40 mg BID LOLA Administration Insulin Glargine 20 units/ 0.2 mls @ 0 mls/hr 10/14/20 21:00 10/17/20 22:35 Miscellaneous Medication SC Not Given HS LOLA Cefepime HCl 1 gm/ Sodium 100 mls @ 200 mls/hr 10/15/20 21:00 10/18/20 08:10 Chloride IVPB 100 mls Q12HR LOLA Administration Insulin Human Lispro 0 units 10/14/20 13:43 10/18/20 06:23 Humalog 300 Units/3 Ml Vial SC 3 unit .AGGRESSIVE SLIDING PRN Administration Aggressive Correctional Scale Sodium Chloride 10 ml 10/15/20 09:00 10/18/20 08:10 Flush - Normal Saline 10 Ml Syringe IVF 10 ml Q12HR LOLA Administration Zinc Sulfate 220 mg 10/14/20 09:00 10/18/20 08:09 Zinc Sulfate 220 Mg Cap PO 220 mg DAILY LOLA Administration Hospitalist Exam Vitals: Vital Signs (12 hours) Temp Pulse Resp BP Pulse Ox 10/18/20 08:00 98.1 F 94 20 159/100 H 96 10/18/20 04:27 100 10/18/20 04:00 98.1 F 90 20 115/82 100 10/18/20 00:22 97.9 F 99 20 138/88 98 Weight Weight 131 lb 6.4 oz General Appearance: NAD General - other findings: speaking in shorter sentences - appears more dyspneic today Heart: RRR, no murmur Respiratory: no wheezes, no rales, no ronchi Respiratory - other findings: shallow breaths Gastrointestinal: soft, non-tender, non-distended, normal bowel sounds Extremities: no cyanosis, no clubbing, no edema Psychiatric: normal affect Hosp A/P (1) Acute respiratory failure due to COVID-19 Code(s): U07.1 - COVID-19; J96.00 - ACUTE RESPIRATORY FAILURE, UNSP W HYPOXIA OR HYPERCAPNIA Status: Acute (2) Diabetes Code(s): E11.9 - TYPE 2 DIABETES MELLITUS WITHOUT COMPLICATIONS Status: Chronic Qualifiers: Diabetes mellitus type: type 2 Diabetes mellitus nursing home insulin use: without nursing home use (3) Hyponatremia Code(s): E87.1 - HYPO-OSMOLALITY AND HYPONATREMIA Status: Acute (4) Pneumonia due to COVID-19 virus Code(s): U07.1 - COVID-19; J12.82 - PNEUMONIA DUE TO CORONAVIRUS DISEASE 2018 Status: Acute - Plan Worsening sx despite being over a month from dx of COVID - requsted re-eval by Pulmonology, will order CT-angio to rule out PE - will increase steroids to BID - continue cefepime - inflammatory markers are either the same or improved Acute resp failure secondary to covid pneumonia in the sub-acute phase with increased oxygen use Start IVF for hydration and to help reduce risk of renal injury with contrast study DM - blood sugar control improved. - continue daily lantus Hyponatremia - slightly worse, starting IVF for hydration, will monitor. - free water fluid restriction dvt prophy - lovenox - increased to BID yesterday gi prophy - ppi while on steroids code status full reviewed plan of care with patient/daughter, no questions or further needs at end of eval. addendum 18:34 - Reviewed CT scan and pneumomediastinum, no tx available per Dr. Alarcon - no change to care.
[2020-10-18] MEDS: Sodium Chloride 0.9% 1,000 ML IV SCH (11:30)
[2020-10-18] MEDS ORDERED: Dexamethasone 4 mg/ml Vial ONE (11:43)
[2020-10-18] MEDS ORDERED: Dexamethasone 4 mg/ml Vial SLOW IVP SCH (11:45)
--- NOTE | 2020-10-18 14:17 | CT ---
CT ANGIO OF CHEST PERFORMD WITH INTRAVENOUS CONTRAST ENHANCEMENT WITH 3D RECONSTRUCTIONS: History: One-month past Covid diagnosis, worsening shortness of breath. Comparison: CT 10-13-2020 FINDINGS: Extensive ground glass and fibrotic lung changes seen in both lung pete are again demonstrated. Edmar e of the ground glass parenchymal changes in the right lower lobe have increased as compared to the p rior examination, although otherwise, changes are relatively stable. Patient has developed a pneumomediastinum. This is probably on the basis of lung ridgedity. I do not see any pneumothorax. This finding is new as compared to the prior exam. Thoracic aorta is normal in caliber. Motion artifact degrades detail but I see no evidence for pulmonary embolus. Visualized liver parenchyma shows no focal findings. IMPRESSION: 1. Development of a pneumomediastinum. This is probably on the basis of the fibrotic lung change . Air is seen extending in the mediastinum mainly along the anterior mediastinum, but also slightly m ore along the right side of the mediastinum that extends minimally into the right neck region. No pne umothorax seen associated with this. 2. Extensive fibrotic lung changes and ground glass opacities, fairly similar to the previous ex am. Some of the changes in the right lung base have worsened. 3. No CT evidence for pulmonary embolus. POS: OFF
--- NOTE | 2020-10-18 14:41 | PRG ---
DATE OF SERVICE: 10/18/2020 SUBJECTIVE: I was asked to see Mr. Cardoza again by Dr. Burrell. He was concerned about increasing oxygen requirements. The patient actually looks better than when I saw him the other day. He does remain on high-flow oxygen at about 85% and that is basically where he has been over the last 36 hours. However, back on October 14 and , he was also around 75% to 80% FiO2. OBJECTIVE: VITAL SIGNS: His temperature is 97.8, pulse 90, respirations 20, O2 saturation running 96% to 100% on the settings. HEENT: Unremarkable. NECK: No adenopathy or JVD. LUNGS: Crackles bilaterally. CARDIAC: S1, S2. Regular. ABDOMEN: Soft. EXTREMITIES: No edema. I reviewed his CT pulmonary angiogram. If he has pulmonary emboli, they are very small, and there are some opacities present in the right lower lobe, but this may be motion artifact. The main significant finding is terrible interstitial lung disease in the periphery, starting mid lung working down toward the bases. 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 PLAN: Continue supportive care with steroids, anticoagulation, and oxygen. This patient may be on oxygen for the remainder of his life. Unfortunately, there is not much help we can provide other than what he is currently getting. Job ID: [id number]
[2020-10-18] MEDS: Dexamethasone 4 mg/ml Vial SLOW IVP SCH (20:22)
[2020-10-18] MEDS: Insulin Glargine 20 UNITS in Pre-Filled Syringe 1 EACH SC SCH (20:51)
[2020-10-19] MEDS: Sodium Chloride 0.9% 1,000 ML IV SCH ×2 (00:44→14:49)
[2020-10-19 05:00] LABS: #Lymphocytes 1.9 thou/uL (1.20-3.40); #Monocytes 0.3 thou/uL (0.11-0.59); #Neutrophils 9.5 thou/uL (1.40-6.50); %Basophils 0.4 % (0.0-1.0); %Eosinophils 0.2 % (0.0-10.0); %Lymphocytes 15.8 % (21.0-51.0); %Monocytes 2.7 % (0.0-10.0); Hemoglobin 14.6 g/dL (14.0-18.0); Mean Corpuscular HGB CONC 34.5 g/dL (32.0-36.0); Mean Corpuscular Hemoglobin 32.6 pg (27.0-31.0); Mean Corpuscular Volume 94.4 fL (78.0-98.0); Mean Platelet Volume 6.8 fL (7.4-10.4); Platelet Count 311 thou/uL (130-400); RBC Distribution Width 11.7 % (11.5-14.5); Red Blood Cell (RBC) Count 4.49 mill/uL (4.70-6.10); White Blood Cell (WBC) Count 11.8 thou/uL (4.8-10.8)
[2020-10-19 05:19] LABS: Anion Gap 12 mmol/L (10-20); BUN (Urea Nitrogen) 17 mg/dL (8.4-25.7); CRP (Inflammatory) 1.37 mg/dL (= or < 0.5); Calc. Creatinine Clearance 119 mL/min (70-130); Calcium 7.8 mg/dL (7.8-10.44); Carbon Dioxide 22 mmol/L (23-31); Chloride 105 mmol/L (98-107); Glucose 147 mg/dL (80-115); Potassium 4.2 mmol/L (3.5-5.1); Sodium 135 mmol/L (136-145)
[2020-10-19] MEDS: Zinc Sulfate 220 MG CAP PO SCH (09:02)
[2020-10-19] MEDS: Cholecalciferol (Vitamin D3) 400 UNITS TAB PO SCH (09:02)
[2020-10-19] MEDS: Cefepime 1 GM in Sodium Chloride 0.9% 100 ML IVPB SCH ×2 (09:04→20:34)
[2020-10-19] MEDS: Enoxaparin Sodium 40 MG/0.4 ML SYRINGE SC SCH ×2 (09:04→20:33)
[2020-10-19] MEDS: Ascorbic Acid 500 mg Chewable Tablet PO SCH (09:04)
[2020-10-19] MEDS: Dexamethasone 4 mg/ml Vial SLOW IVP SCH ×2 (09:05→20:33)
[2020-10-19] MEDS: Colchicine 0.3 MG TAB PO SCH ×2 (10:01→20:36)
--- NOTE | 2020-10-19 11:00 | PDOC.HOSPP ---
- Subjective Encounter Date: 10/19/20 Encounter Time: 10:43 Subjective: comfortable on high flow O2 - Objective Vital Signs & Weight: Vital Signs (12 hours) Temp Pulse Resp BP Pulse Ox 10/19/20 07:55 97.7 F 83 23 H 133/95 H 94 L 10/19/20 03:40 97.8 F 73 16 146/83 H 100 10/19/20 03:07 99 Weight Weight 131 lb 6.4 oz I&O: 10/18/20 10/19/20 10/20/20 06:59 06:59 06:59 Intake Total 1965 Output Total 950 1000 Balance -950 965 Result Diagrams: 10/19/20 04:46 10/19/20 04:46 Additional Labs: Accuchecks 10/18/20 10/18/20 10/18/20 20:44 15:36 11:28 POC Glucose 152 H 280 H 175 H Hospitalist ROS - Medication Medications: Active Medications Generic Name Dose Route Start Last Admin Trade Name Freq PRN Reason Stop Dose Admin Ascorbic Acid 1,000 mg 10/14/20 09:00 10/19/20 09:04 Ascorbic Acid 500 Mg Chewable Tablet PO 1,000 mg DAILY LOLA Administration Cholecalciferol 400 units 10/14/20 09:00 10/19/20 09:02 Cholecalciferol (Vitamin D3) 400 Units Tab PO 400 units DAILY LOLA Administration Colchicine 0.3 mg 10/15/20 21:00 10/19/20 10:01 Colchicine 0.3 Mg Tab PO 0.3 mg BID LOLA Administration Dexamethasone 6 mg 10/18/20 21:00 10/19/20 09:05 Dexamethasone 4 Mg/Ml Vial SLOW IVP 6 mg BID LOLA Administration Enoxaparin Sodium 40 mg 10/17/20 21:00 10/19/20 09:04 Enoxaparin Sodium 40 Mg/0.4 Ml Syringe SC 40 mg BID LOLA Administration Insulin Glargine 20 units/ 0.2 mls @ 0 mls/hr 10/14/20 21:00 10/18/20 20:51 Miscellaneous Medication SC 0.2 mls HS LOLA Administration Cefepime HCl 1 gm/ Sodium 100 mls @ 200 mls/hr 10/15/20 21:00 10/19/20 09:04 Chloride IVPB 100 mls Q12HR LOLA Administration Sodium Chloride 1,000 mls @ 75 mls/hr 10/18/20 11:30 10/19/20 00:44 Normal Saline 0.9% IV 1,000 mls .[id number] LOLA Administration Insulin Human Lispro 0 units 10/14/20 13:43 10/18/20 16:48 Humalog 300 Units/3 Ml Vial SC 9 unit .AGGRESSIVE SLIDING PRN Administration Aggressive Correctional Scale Pantoprazole Sodium 40 mg 10/19/20 09:00 10/19/20 09:03 Pantoprazole 40 Mg Tab PO 40 mg DAILY LOLA Administration Sodium Chloride 10 ml 10/15/20 09:00 10/19/20 10:00 Flush - Normal Saline 10 Ml Syringe IVF 10 ml Q12HR LOLA Administration Zinc Sulfate 220 mg 10/14/20 09:00 10/19/20 09:02 Zinc Sulfate 220 Mg Cap PO 220 mg DAILY LOLA Administration Hospitalist Exam Vitals: Vital Signs (12 hours) Temp Pulse Resp BP Pulse Ox 10/19/20 07:55 97.7 F 83 23 H 133/95 H 94 L 10/19/20 03:40 97.8 F 73 16 146/83 H 100 10/19/20 03:07 99 Weight Weight 131 lb 6.4 oz General Appearance: awake alert Neck: no JVD Heart: RRR, no murmur Respiratory - other findings: fine rales Gastrointestinal: soft, normal bowel sounds Extremities: no edema Hosp A/P (1) Acute respiratory failure due to COVID-19 Code(s): U07.1 - COVID-19; J96.00 - ACUTE RESPIRATORY FAILURE, UNSP W HYPOXIA OR HYPERCAPNIA Status: Acute (2) Hyponatremia Code(s): E87.1 - HYPO-OSMOLALITY AND HYPONATREMIA Status: Acute (3) Pneumonia due to COVID-19 virus Code(s): U07.1 - COVID-19; J12.82 - PNEUMONIA DUE TO CORONAVIRUS DISEASE 2019 Status: Acute (4) Diabetes Code(s): E11.9 - TYPE 2 DIABETES MELLITUS WITHOUT COMPLICATIONS Status: Chronic Qualifiers: Diabetes mellitus type: type 2 Diabetes mellitus correction insulin use: without correction use - Plan cont high flow O2 accu/ss/ add AM glargine. cont metformin, PM glargine
[2020-10-19] MEDS: HumaLOG 300 UNITS/3 ML VIAL SC PRN ×2 (11:24→18:00)
[2020-10-19] MEDS: Insulin Glargine 20 UNITS in Pre-Filled Syringe 1 EACH SC SCH (20:34)
[2020-10-20] MEDS: Sodium Chloride 0.9% 1,000 ML IV SCH ×2 (05:44→20:53)
[2020-10-20] MEDS: Enoxaparin Sodium 40 MG/0.4 ML SYRINGE SC SCH ×2 (08:52→20:54)
[2020-10-20] MEDS: Zinc Sulfate 220 MG CAP PO SCH (08:53)
[2020-10-20] MEDS: Dexamethasone 4 mg/ml Vial SLOW IVP SCH ×2 (08:53→20:53)
[2020-10-20] MEDS: Cholecalciferol (Vitamin D3) 400 UNITS TAB PO SCH (08:53)
[2020-10-20] MEDS: Ascorbic Acid 500 mg Chewable Tablet PO SCH (08:53)
[2020-10-20] MEDS: Colchicine 0.3 MG TAB PO SCH ×2 (08:55→20:54)
[2020-10-20] MEDS: Cefepime 1 GM in Sodium Chloride 0.9% 100 ML IVPB SCH ×2 (08:56→20:53)
[2020-10-20] MEDS: Insulin Glargine 10 UNITS in Pre-Filled Syringe 1 EACH SC SCH (09:00)
--- NOTE | 2020-10-20 09:03 | PDOC.HOSPP ---
- Subjective Encounter Date: 10/20/20 Encounter Time: 09:01 Subjective: some tightness in chest, sob - Objective Vital Signs & Weight: Vital Signs (12 hours) Temp Pulse Resp BP Pulse Ox 10/20/20 07:16 94 L 10/20/20 04:05 98.2 F 70 20 140/87 99 10/20/20 02:35 100 Weight Weight 131 lb 6.4 oz I&O: 10/19/20 10/20/20 10/21/20 06:59 06:59 06:59 Intake Total 1964 2022 Output Total 1000 950 Balance 965 1073 Result Diagrams: 10/19/20 04:46 10/19/20 04:46 Additional Labs: Accuchecks 10/19/20 10/19/20 10/19/20 20:09 17:05 10:43 POC Glucose 199 H 245 H 294 H 10/18/20 15:36 POC Glucose 280 H Hospitalist ROS - Medication Medications: Active Medications Generic Name Dose Route Start Last Admin Trade Name Freq PRN Reason Stop Dose Admin Ascorbic Acid 1,000 mg 10/14/20 09:00 10/20/20 08:53 Ascorbic Acid 500 Mg Chewable Tablet PO 1,000 mg DAILY LOLA Administration Cholecalciferol 400 units 10/14/20 09:00 10/20/20 08:53 Cholecalciferol (Vitamin D3) 400 Units Tab PO 400 units DAILY LOLA Administration Colchicine 0.3 mg 10/15/20 21:00 10/20/20 08:55 Colchicine 0.3 Mg Tab PO 0.3 mg BID LOLA Administration Dexamethasone 6 mg 10/18/20 21:00 10/20/20 08:53 Dexamethasone 4 Mg/Ml Vial SLOW IVP 6 mg BID LOLA Administration Enoxaparin Sodium 40 mg 10/17/20 21:00 10/20/20 08:52 Enoxaparin Sodium 40 Mg/0.4 Ml Syringe SC 40 mg BID LOLA Administration Insulin Glargine 20 units/ 0.2 mls @ 0 mls/hr 10/14/20 21:00 10/19/20 20:34 Miscellaneous Medication SC 0.2 mls HS LOLA Administration Cefepime HCl 1 gm/ Sodium 100 mls @ 200 mls/hr 10/15/20 21:00 10/20/20 08:56 Chloride IVPB 100 mls Q12HR LOLA Administration Sodium Chloride 1,000 mls @ 75 mls/hr 10/18/20 11:30 10/20/20 05:44 Normal Saline 0.9% IV 1,000 mls .[id number] LOLA Administration Insulin Human Lispro 0 units 10/14/20 13:43 10/19/20 18:00 Humalog 300 Units/3 Ml Vial SC 6 unit .AGGRESSIVE SLIDING PRN Administration Aggressive Correctional Scale Pantoprazole Sodium 40 mg 10/19/20 09:00 10/20/20 08:53 Pantoprazole 40 Mg Tab PO 40 mg DAILY LOLA Administration Sodium Chloride 10 ml 10/15/20 09:00 10/20/20 08:57 Flush - Normal Saline 10 Ml Syringe IVF 10 ml Q12HR LOLA Administration Zinc Sulfate 220 mg 10/14/20 09:00 10/20/20 08:53 Zinc Sulfate 220 Mg Cap PO 220 mg DAILY LOLA Administration Hospitalist Exam Vitals: Vital Signs (12 hours) Temp Pulse Resp BP Pulse Ox 10/20/20 07:16 94 L 10/20/20 04:05 98.2 F 70 20 140/87 99 10/20/20 02:35 100 Weight Weight 131 lb 6.4 oz General Appearance: awake alert Neck: no JVD Heart: RRR, no murmur Respiratory - other findings: coarse BS with fine rales Gastrointestinal: soft, non-tender, normal bowel sounds Extremities: no edema Hosp A/P (1) Acute respiratory failure due to COVID-19 Code(s): U07.1 - COVID-19; J96.00 - ACUTE RESPIRATORY FAILURE, UNSP W HYPOXIA OR HYPERCAPNIA Status: Acute (2) Hyponatremia Code(s): E87.1 - HYPO-OSMOLALITY AND HYPONATREMIA Status: Acute (3) Pneumonia due to COVID-19 virus Code(s): U07.1 - COVID-19; J12.82 - PNEUMONIA DUE TO CORONAVIRUS DISEASE 2019 Status: Acute (4) Diabetes Code(s): E11.9 - TYPE 2 DIABETES MELLITUS WITHOUT COMPLICATIONS Status: Chronic Qualifiers: Diabetes mellitus type: type 2 Diabetes mellitus fdc insulin use: without marine oil terminal superintendent use - Plan cont high flow O2 accu/ss/ add AM glargine. cont metformin, PM glargine add albuteral inhaler EKG, Troponin x3
[2020-10-20] MEDS: Albuterol 200 PUFF (6.7GM INHALER) INH SCH ×3 (10:15→18:37)
[2020-10-20 11:08] LABS: Troponin I Less than 0.010 ng/mL (< 0.028)
[2020-10-20 12:44] LABS: Troponin I Less than 0.010 ng/mL (< 0.028)
[2020-10-20] MEDS: HumaLOG 300 UNITS/3 ML VIAL SC PRN ×2 (12:54→17:30)
[2020-10-20 14:13] LABS: Troponin I Less than 0.010 ng/mL (< 0.028)
--- NOTE | 2020-10-20 14:58 | PDOC.BPN ---
- Brief Progress Note Encounter Date: 10/20/20 Encounter Time: 14:56 EEKG- non-specific ST abnormality, trop nl x 3. suspect chest tightness due to conid-cont albuteral inhaler
[2020-10-20] MEDS: Insulin Glargine 20 UNITS in Pre-Filled Syringe 1 EACH SC SCH (20:56)
--- NOTE | 2020-10-20 22:17 | EKG ---
Test Reason : Blood Pressure : / mmHG Vent. Rate : 081 BPM Atrial Rate : 081 BPM P-R Int : 168 ms QRS Dur : 084 ms QT Int : 418 ms P-R-T Axes : 030 001 027 degrees QTc Int : 485 ms Normal sinus rhythm Nonspecific T wave abnormality Prolonged QT Abnormal ECG When compared with ECG of 13-OCT-2020 20:31, Nonspecific T wave abnormality now evident in Lateral leads Confirmed by Clifton SERRA ([id number]) on 10/20/2020 10:17:02 PM Referred By: DAIJA Confirmed By:Clifton SERRA
[2020-10-21] MEDS: Albuterol 200 PUFF (6.7GM INHALER) INH SCH ×4 (07:32→18:29)
[2020-10-21] MEDS: Cefepime 1 GM in Sodium Chloride 0.9% 100 ML IVPB SCH ×2 (08:03→20:51)
[2020-10-21] MEDS: Enoxaparin Sodium 40 MG/0.4 ML SYRINGE SC SCH ×2 (08:04→20:54)
[2020-10-21] MEDS: Dexamethasone 4 mg/ml Vial SLOW IVP SCH ×2 (08:04→20:53)
[2020-10-21] MEDS: Cholecalciferol (Vitamin D3) 400 UNITS TAB PO SCH (08:05)
[2020-10-21] MEDS: Ascorbic Acid 500 mg Chewable Tablet PO SCH (08:05)
[2020-10-21] MEDS: Zinc Sulfate 220 MG CAP PO SCH (08:05)
[2020-10-21] MEDS: Colchicine 0.3 MG TAB PO SCH ×2 (08:09→20:53)
[2020-10-21] MEDS: Insulin Glargine 10 UNITS in Pre-Filled Syringe 1 EACH SC SCH (10:26)
[2020-10-21] MEDS: HumaLOG 300 UNITS/3 ML VIAL SC PRN ×3 (13:06→21:12)
[2020-10-21] MEDS: Sodium Chloride 0.9% 1,000 ML IV SCH (13:22)
--- NOTE | 2020-10-21 15:46 | PDOC.HOSPP ---
- Subjective Encounter Date: 10/21/20 Encounter Time: 15:44 Subjective: some subjective SOB. has been transitioned to 3-4 LiO2 per NC. O2 sat 92+/- - Objective Vital Signs & Weight: Vital Signs (12 hours) Temp Pulse Pulse Pulse Resp BP BP 10/21/20 11:15 98.6 F 106 H 28 H 10/21/20 11:05 90 90 149/82 H 147/81 H 10/21/20 08:09 10/21/20 07:56 98.3 F 78 30 H 10/21/20 07:32 BP Pulse Ox Pulse Ox Pulse Ox 10/21/20 11:15 147/81 H 97 10/21/20 11:05 89 L 97 10/21/20 08:09 90 L 10/21/20 07:56 147/85 H 90 L 10/21/20 07:32 91 L Weight Weight 131 lb 6.4 oz I&O: 10/20/20 10/21/20 10/22/20 06:59 06:59 06:59 Intake Total 2022 Output Total 950 Balance 1073 Result Diagrams: 10/19/20 04:46 10/19/20 04:46 Additional Labs: Accuchecks 10/21/20 10/21/20 10/20/20 11:15 05:58 20:19 POC Glucose 250 H 118 H 271 H 10/20/20 10/20/20 16:38 05:35 POC Glucose 218 H 114 H Hospitalist ROS - Medication Medications: Active Medications Generic Name Dose Route Start Last Admin Trade Name Freq PRN Reason Stop Dose Admin Albuterol Sulfate 2 puff 10/20/20 11:00 10/21/20 13:41 Albuterol 200 Puff (6.7gm Inhaler) INH 2 puff QID-RT LOLA Administration Ascorbic Acid 1,000 mg 10/14/20 09:00 10/21/20 08:05 Ascorbic Acid 500 Mg Chewable Tablet PO 1,000 mg DAILY LOLA Administration Cholecalciferol 400 units 10/14/20 09:00 10/21/20 08:05 Cholecalciferol (Vitamin D3) 400 Units Tab PO 400 units DAILY LOLA Administration Colchicine 0.3 mg 10/15/20 21:00 10/21/20 08:09 Colchicine 0.3 Mg Tab PO 0.3 mg BID LOLA Administration Dexamethasone 6 mg 10/18/20 21:00 10/21/20 08:04 Dexamethasone 4 Mg/Ml Vial SLOW IVP 6 mg BID LOLA Administration Enoxaparin Sodium 40 mg 10/17/20 21:00 10/21/20 08:04 Enoxaparin Sodium 40 Mg/0.4 Ml Syringe SC 40 mg BID LOLA Administration Insulin Glargine 20 units/ 0.2 mls @ 0 mls/hr 10/14/20 21:00 10/20/20 20:56 Miscellaneous Medication SC 0.2 mls HS LOLA Administration Cefepime HCl 1 gm/ Sodium 100 mls @ 200 mls/hr 10/15/20 21:00 10/21/20 08:03 Chloride IVPB 100 mls Q12HR LOLA Administration Sodium Chloride 1,000 mls @ 75 mls/hr 10/18/20 11:30 10/21/20 13:22 Normal Saline 0.9% IV 1,000 mls .[id number] LOLA Administration Insulin Glargine 10 units/ 0.1 mls @ 0 mls/hr 10/20/20 09:00 10/21/20 10:26 Miscellaneous Medication SC 0.1 mls QAM LOLA Administration Insulin Human Lispro 0 units 10/14/20 13:43 10/21/20 13:06 Humalog 300 Units/3 Ml Vial SC 6 unit .AGGRESSIVE SLIDING PRN Administration Aggressive Correctional Scale Pantoprazole Sodium 40 mg 10/19/20 09:00 10/21/20 08:06 Pantoprazole 40 Mg Tab PO 40 mg DAILY LOLA Administration Sodium Chloride 10 ml 10/15/20 09:00 10/21/20 08:08 Flush - Normal Saline 10 Ml Syringe IVF 10 ml Q12HR LOLA Administration Zinc Sulfate 220 mg 10/14/20 09:00 10/21/20 08:05 Zinc Sulfate 220 Mg Cap PO 220 mg DAILY LOLA Administration Hospitalist Exam Vitals: Vital Signs (12 hours) Temp Pulse Pulse Pulse Resp BP BP 10/21/20 11:15 98.6 F 106 H 28 H 10/21/20 11:05 90 90 149/82 H 147/81 H 10/21/20 08:09 10/21/20 07:56 98.3 F 78 30 H 10/21/20 07:32 BP Pulse Ox Pulse Ox Pulse Ox 10/21/20 11:15 147/81 H 97 10/21/20 11:05 89 L 97 10/21/20 08:09 90 L 10/21/20 07:56 147/85 H 90 L 10/21/20 07:32 91 L Weight Weight 131 lb 6.4 oz General Appearance: awake alert Neck: no JVD Heart: RRR Respiratory: CTAB Respiratory - other findings: scant fine rales Gastrointestinal: soft, non-distended, no palpable masses Extremities: no edema Hosp A/P (1) Acute respiratory failure due to COVID-19 Code(s): U07.1 - COVID-19; J96.00 - ACUTE RESPIRATORY FAILURE, UNSP W HYPOXIA OR HYPERCAPNIA Status: Acute (2) Hyponatremia Code(s): E87.1 - HYPO-OSMOLALITY AND HYPONATREMIA Status: Acute (3) Pneumonia due to COVID-19 virus Code(s): U07.1 - COVID-19; J12.82 - PNEUMONIA DUE TO CORONAVIRUS DISEASE 2019 Status: Acute (4) Diabetes Code(s): E11.9 - TYPE 2 DIABETES MELLITUS WITHOUT COMPLICATIONS Status: Chronic Qualifiers: Diabetes mellitus type: type 2 Diabetes mellitus skilled nursing insulin use: without intermission coordinator use - Plan now on 3Li O2 per [place] accu/ss/ add AM glargine. cont metformin, PM glargine albuteral inhaler check cbc, bmp in AM
[2020-10-21] MEDS ORDERED: Cepastat Lozenges 1 LOZ PO PRN (16:47)
[2020-10-21] MEDS: Insulin Glargine 20 UNITS in Pre-Filled Syringe 1 EACH SC SCH (20:55)
[2020-10-22] MEDS: Sodium Chloride 0.9% 1,000 ML IV SCH (05:02)
[2020-10-22 05:23] LABS: Anion Gap 10 mmol/L (10-20); BUN (Urea Nitrogen) 10 mg/dL (8.4-25.7); Band 6 % (5-11); Calc. Creatinine Clearance 133 mL/min (70-130); Calcium 7.6 mg/dL (7.8-10.44); Carbon Dioxide 25 mmol/L (23-31); Chloride 103 mmol/L (98-107); Glucose 113 mg/dL (80-115); Hemoglobin 14.2 g/dL (14.0-18.0); Lymphocytes 12 % (21-51); MDiff Complete? YES; Mean Corpuscular HGB CONC 34.1 g/dL (32.0-36.0); Mean Corpuscular Hemoglobin 32.3 pg (27.0-31.0); Mean Corpuscular Volume 94.6 fL (78.0-98.0); Mean Platelet Volume 6.9 fL (7.4-10.4); Monocytes 6 % (0-10); Neutrophil 72 % (42-75); Platelet Count 303 thou/uL (130-400); Platelet Morphology Comment Appears Adequate; Potassium 3.8 mmol/L (3.5-5.1); RBC Morphology Normal; Reactive Lymphocytes 4 % (0-10); Red Blood Cell (RBC) Count 4.39 mill/uL (4.70-6.10); Sodium 134 mmol/L (136-145); White Blood Cell (WBC) Count 12.1 thou/uL (4.8-10.8)
[2020-10-22] MEDS: Albuterol 200 PUFF (6.7GM INHALER) INH SCH ×4 (07:37→23:01)
[2020-10-22] MEDS: Ascorbic Acid 500 mg Chewable Tablet PO SCH (08:48)
[2020-10-22] MEDS: Cholecalciferol (Vitamin D3) 400 UNITS TAB PO SCH (08:49)
[2020-10-22] MEDS: Cefepime 1 GM in Sodium Chloride 0.9% 100 ML IVPB SCH ×2 (08:49→20:26)
[2020-10-22] MEDS: Colchicine 0.3 MG TAB PO SCH ×2 (08:50→20:27)
[2020-10-22] MEDS: Dexamethasone 4 mg/ml Vial SLOW IVP SCH ×2 (08:50→20:27)
[2020-10-22] MEDS: Enoxaparin Sodium 40 MG/0.4 ML SYRINGE SC SCH ×2 (08:51→20:26)
[2020-10-22] MEDS: Insulin Glargine 10 UNITS in Pre-Filled Syringe 1 EACH SC SCH (08:52)
[2020-10-22] MEDS: Zinc Sulfate 220 MG CAP PO SCH (08:53)
[2020-10-22] MEDS: HumaLOG 300 UNITS/3 ML VIAL SC PRN ×2 (11:18→16:06)
--- NOTE | 2020-10-22 11:45 | PDOC.HOSPP ---
- Subjective Encounter Date: 10/22/20 Encounter Time: 11:43 Subjective: comfortable at rest. some DUMONT - Objective Vital Signs & Weight: Vital Signs (12 hours) Temp Pulse Pulse Pulse Resp BP BP 10/22/20 09:35 89 87 149/90 H 151/87 H 10/22/20 05:30 10/22/20 04:30 98.1 F 67 20 BP Pulse Ox Pulse Ox Pulse Ox 10/22/20 09:35 94 L 95 10/22/20 05:30 99 10/22/20 04:30 132/89 100 Weight Admit Weight 131 lb 6.4 oz Weight 131 lb 6.4 oz I&O: 10/21/20 10/22/20 10/23/20 06:59 06:59 06:59 Intake Total 700 Output Total 950 Balance -250 Result Diagrams: 10/22/20 04:42 10/22/20 04:42 Additional Labs: Accuchecks 10/22/20 10/21/20 10/21/20 10:58 20:09 16:33 POC Glucose 324 H 297 H 243 H Hospitalist ROS - Medication Medications: Active Medications Generic Name Dose Route Start Last Admin Trade Name Freq PRN Reason Stop Dose Admin Albuterol Sulfate 2 puff 10/20/20 11:00 10/22/20 11:09 Albuterol 200 Puff (6.7gm Inhaler) INH 2 puff QID-RT LOLA Administration Ascorbic Acid 1,000 mg 10/14/20 09:00 10/22/20 08:48 Ascorbic Acid 500 Mg Chewable Tablet PO 500 mg DAILY LOLA Administration Cholecalciferol 400 units 10/14/20 09:00 10/22/20 08:49 Cholecalciferol (Vitamin D3) 400 Units Tab PO 400 units DAILY LOLA Administration Colchicine 0.3 mg 10/15/20 21:00 10/22/20 08:50 Colchicine 0.3 Mg Tab PO 0.3 mg BID LOLA Administration Dexamethasone 6 mg 10/18/20 21:00 10/22/20 08:50 Dexamethasone 4 Mg/Ml Vial SLOW IVP 6 mg BID LOLA Administration Enoxaparin Sodium 40 mg 10/17/20 21:00 10/22/20 08:51 Enoxaparin Sodium 40 Mg/0.4 Ml Syringe SC 40 mg BID LOLA Administration Insulin Glargine 20 units/ 0.2 mls @ 0 mls/hr 10/14/20 21:00 10/21/20 20:55 Miscellaneous Medication SC 0.2 mls HS LOLA Administration Cefepime HCl 1 gm/ Sodium 100 mls @ 200 mls/hr 10/15/20 21:00 10/22/20 08:49 Chloride IVPB 100 mls Q12HR LOLA Administration Sodium Chloride 1,000 mls @ 75 mls/hr 10/18/20 11:30 10/22/20 05:02 Normal Saline 0.9% IV 1,000 mls .[id number] LOLA Administration Insulin Glargine 10 units/ 0.1 mls @ 0 mls/hr 10/20/20 09:00 10/22/20 08:52 Miscellaneous Medication SC 0.1 mls QAM LOLA Administration Insulin Human Lispro 0 units 10/14/20 13:43 10/22/20 11:18 Humalog 300 Units/3 Ml Vial SC 11 unit .AGGRESSIVE SLIDING PRN Administration Aggressive [employer]al Scale Pantoprazole Sodium 40 mg 10/19/20 09:00 10/22/20 08:52 Pantoprazole 40 Mg Tab PO 40 mg DAILY LOLA Administration Sodium Chloride 10 ml 10/15/20 09:00 10/22/20 08:53 Flush - Normal Saline 10 Ml Syringe IVF 10 ml Q12HR LOLA Administration Throat Lozenges 1 jenifer 10/21/20 16:47 10/21/20 19:22 Cepastat Lozenges 1 Jenifer PO 1 jenifer Q1H PRN Administration Cough Zinc Sulfate 220 mg 10/14/20 09:00 10/22/20 08:53 Zinc Sulfate 220 Mg Cap PO 220 mg DAILY LOLA Administration Hospitalist Exam Vitals: Vital Signs (12 hours) Temp Pulse Pulse Pulse Resp BP BP 10/22/20 09:35 89 87 149/90 H 151/87 H 10/22/20 05:30 10/22/20 04:30 98.1 F 67 20 BP Pulse Ox Pulse Ox Pulse Ox 10/22/20 09:35 94 L 95 10/22/20 05:30 99 10/22/20 04:30 132/89 100 Weight Admit Weight 131 lb 6.4 oz Weight 131 lb 6.4 oz General Appearance: awake alert Neck: no JVD Heart: RRR, no murmur Respiratory - other findings: good BS, mild post fine rales Gastrointestinal: soft, normal bowel sounds Extremities: no edema Hosp A/P (1) Acute respiratory failure due to COVID-19 Code(s): U07.1 - COVID-19; J96.00 - ACUTE RESPIRATORY FAILURE, UNSP W HYPOXIA OR HYPERCAPNIA Status: Acute (2) Hyponatremia Code(s): E87.1 - HYPO-OSMOLALITY AND HYPONATREMIA Status: Acute (3) Pneumonia due to COVID-19 virus Code(s): U07.1 - COVID-19; J12.82 - PNEUMONIA DUE TO CORONAVIRUS DISEASE 2019 Status: Acute (4) Diabetes Code(s): E11.9 - TYPE 2 DIABETES MELLITUS WITHOUT COMPLICATIONS Status: [facility] Qualifiers: Diabetes mellitus type: type 2 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 cont metformin, PM glargine albuteral inhaler
[2020-10-22] MEDS: Insulin Glargine 20 UNITS in Pre-Filled Syringe 1 EACH SC SCH (20:36)
[2020-10-23] MEDS: Albuterol 200 PUFF (6.7GM INHALER) INH SCH ×4 (05:12→19:46)
[2020-10-23] MEDS: HumaLOG 300 UNITS/3 ML VIAL SC PRN ×4 (05:16→21:35)
[2020-10-23] MEDS ORDERED: Calcium Carbonate 500 MG ChewTAB PO PRN (08:13)
[2020-10-23] MEDS ORDERED: HYDROcodone/Acetaminophen 5/325 mg Tablet PO PRN (08:13)
[2020-10-23] MEDS ORDERED: Senokot S 8.6-50 MG TAB PO PRN (08:13)
[2020-10-23] MEDS ORDERED: GUAIFENESIN SF SOLN 200 MG/10 ML UDCUP PO PRN (08:13)
[2020-10-23] MEDS ORDERED: Ondansetron ODT 4 MG TAB PO PRN (08:13)
[2020-10-23] MEDS ORDERED: Ondansetron PF 4 MG/2 ML Vial IVP PRN (08:13)
[2020-10-23] MEDS ORDERED: Loperamide HCl 2 MG CAP PO PRN (08:13)
[2020-10-23] MEDS ORDERED: Benzonatate 100 MG CAP PO PRN (08:13)
[2020-10-23] MEDS ORDERED: Loratadine 10 MG TAB PO PRN (08:13)
[2020-10-23] MEDS ORDERED: Sodium Chloride 0.65% Nasal 44 ML BOT EA NARE PRN (08:13)
[2020-10-23] MEDS ORDERED: hydrALAZINE 20 MG/ML VIAL SLOW IVP PRN (08:13)
[2020-10-23] MEDS ORDERED: Zolpidem Tartrate 5 MG TAB PO PRN (08:13)
[2020-10-23] MEDS ORDERED: Bisacodyl 5 MG TAB PO PRN (08:13)
[2020-10-23] MEDS: Dexamethasone 4 mg/ml Vial SLOW IVP SCH (09:32)
[2020-10-23] MEDS: Ascorbic Acid 500 mg Chewable Tablet PO SCH (09:32)
[2020-10-23] MEDS: Enoxaparin Sodium 40 MG/0.4 ML SYRINGE SC SCH ×2 (09:32→21:23)
[2020-10-23] MEDS: Cholecalciferol (Vitamin D3) 400 UNITS TAB PO SCH (09:33)
[2020-10-23] MEDS: Insulin Glargine 10 UNITS in Pre-Filled Syringe 1 EACH SC SCH (09:33)
[2020-10-23] MEDS: Zinc Sulfate 220 MG CAP PO SCH (09:33)
[2020-10-23] MEDS: Cefepime 1 GM in Sodium Chloride 0.9% 100 ML IVPB SCH ×2 (09:33→21:21)
[2020-10-23] MEDS: Colchicine 0.3 MG TAB PO SCH ×2 (09:33→21:23)
--- NOTE | 2020-10-23 12:32 | PDOC.HOSPP ---
- Subjective Encounter Date: 10/23/20 Encounter Time: 07:40 Subjective: Patient seen and examined bedside today, no overnight event, patient is requiring oxygen, he is overall better but feels weak - Objective Vital Signs & Weight: Vital Signs (12 hours) Temp Pulse Resp BP BP Pulse Ox 10/23/20 11:16 98.4 F 86 23 H 150/86 H 99 10/23/20 07:32 96 10/23/20 07:15 98.9 F 73 21 H 121/77 95 10/23/20 04:40 98 10/23/20 04:07 97.8 F 67 21 H 124/77 100 Weight Admit Weight 131 lb 6.4 oz Weight 131 lb 6.4 oz I&O: 10/22/20 10/23/20 10/24/20 06:59 06:59 06:59 Intake Total 700 1025 Output Total 950 1550 Balance -250 525 Result Diagrams: 10/22/20 04:42 10/22/20 04:42 Additional Labs: Accuchecks 10/23/20 10/23/20 10/22/20 10:59 04:41 21:13 POC Glucose 201 H 181 H 234 H 10/22/20 10/22/20 20:29 15:45 POC Glucose 195 H 217 H EKG Reviewed by me: Yes Hospitalist ROS - Review of Systems Constitutional: reports: weakness ENT: denies: ear pain, ear discharge, nose pain, nose discharge, nose congestion, mouth pain, mouth swelling, throat pain, throat swelling, other Respiratory: reports: shortness of breath, SOB with excertion. denies: cough, dry, hemoptysis, pleuritic pain, sputum, wheezing, other Cardiovascular: denies: chest pain, palpitations, orthopnea, paroxysmal noc. dyspnea, edema, light headedness, other Gastrointestinal: denies: nausea, vomiting, abdominal pain, diarrhea, constipation, melena, hematochezia, other Genitourinary: denies: dysuria, frequency, incontinence, hematuria, retention, other Musculoskeletal: denies: neck pain, shoulder pain, arm pain, back pain, hand pain, leg pain, foot pain, other - Medication Medications: Active Medications Generic Name Dose Route Start Last Admin Trade Name Freq PRN Reason Stop Dose Admin Albuterol Sulfate 2 puff 10/20/20 11:00 10/23/20 11:04 Albuterol 200 Puff (6.7gm Inhaler) INH 2 puff QID-RT LOLA Administration Ascorbic Acid 1,000 mg 10/14/20 09:00 10/23/20 09:32 Ascorbic Acid 500 Mg Chewable Tablet PO 1,000 mg DAILY LOLA Administration Cholecalciferol 400 units 10/14/20 09:00 10/23/20 09:33 Cholecalciferol (Vitamin D3) 400 Units Tab PO 400 units DAILY LOLA Administration Colchicine 0.3 mg 10/15/20 21:00 10/23/20 09:33 Colchicine 0.3 Mg Tab PO 0.3 mg BID LOLA Administration Dexamethasone 6 mg 10/23/20 09:00 10/23/20 09:32 Dexamethasone 4 Mg/Ml Vial SLOW IVP 6 mg DAILY LOLA Administration Enoxaparin Sodium 40 mg 10/17/20 21:00 10/23/20 09:32 Enoxaparin Sodium 40 Mg/0.4 Ml Syringe SC 40 mg BID LOLA Administration Insulin Glargine 20 units/ 0.2 mls @ 0 mls/hr 10/14/20 21:00 10/22/20 20:36 Miscellaneous Medication SC 0.2 mls HS LOLA Administration Cefepime HCl 1 gm/ Sodium 100 mls @ 200 mls/hr 10/15/20 21:00 10/23/20 09:33 Chloride IVPB 100 mls Q12HR LOLA Administration Insulin Glargine 10 units/ 0.1 mls @ 0 mls/hr 10/20/20 09:00 10/23/20 09:33 Miscellaneous Medication SC 0.1 mls QAM LOLA Administration Insulin Human Lispro 0 units 10/14/20 13:43 10/23/20 11:18 Humalog 300 Units/3 Ml Vial SC 6 unit .AGGRESSIVE SLIDING PRN Administration Aggressive Correctional Scale Pantoprazole Sodium 40 mg 10/19/20 09:00 10/23/20 09:33 Pantoprazole 40 Mg Tab PO 40 mg DAILY LOLA Administration Sodium Chloride 10 ml 10/15/20 09:00 10/23/20 09:32 Flush - Normal Saline 10 Ml Syringe IVF 10 ml Q12HR LOLA Administration Throat Lozenges 1 jenifer 10/21/20 16:47 10/21/20 19:22 Cepastat Lozenges 1 Jenifer PO 1 jenifer Q1H PRN Administration Cough Zinc Sulfate 220 mg 10/14/20 09:00 10/23/20 09:33 Zinc Sulfate 220 Mg Cap PO 220 mg DAILY LOLA Administration Hospitalist Exam Vitals: Vital Signs (12 hours) Temp Pulse Resp BP BP Pulse Ox 10/23/20 11:16 98.4 F 86 23 H 150/86 H 99 10/23/20 07:32 96 10/23/20 07:15 98.9 F 73 21 H 121/77 95 10/23/20 04:40 98 10/23/20 04:07 97.8 F 67 21 H 124/77 100 Weight Admit Weight 131 lb 6.4 oz Weight 131 lb 6.4 oz General Appearance: NAD, awake alert Eye: PERRL, anicteric sclera ENT: normocephalic atraumatic, no oropharyngeal lesions Neck: supple, symmetric, no JVD, no thyromegaly Heart: RRR, no murmur, no gallops, no rubs Respiratory: no wheezes, no rales, no ronchi Gastrointestinal: soft, non-tender, non-distended, normal bowel sounds Extremities: no cyanosis, no clubbing, no edema Skin: normal turgor, no lesions Neurological: no focal deficits Musculoskeletal: normal tone, normal strength Psychiatric: normal affect, normal behavior Hosp A/P (1) Acute respiratory failure due to COVID-19 Code(s): U07.1 - COVID-19; J96.00 - ACUTE RESPIRATORY FAILURE, UNSP W HYPOXIA OR HYPERCAPNIA Status: Acute (2) Hyponatremia Code(s): E87.1 - HYPO-OSMOLALITY AND HYPONATREMIA Status: Resolved (3) Pneumonia due to COVID-19 virus Code(s): U07.1 - COVID-19; J12.82 - PNEUMONIA DUE TO CORONAVIRUS DISEASE 2019 Status: Acute (4) Rhabdomyolysis Code(s): M62.82 - RHABDOMYOLYSIS Status: Resolved (5) Diabetes Code(s): E11.9 - TYPE 2 DIABETES MELLITUS WITHOUT COMPLICATIONS Status: Chronic Qualifiers: Diabetes mellitus type: type 2 Diabetes mellitus detention insulin use: without detention use - Plan old records reviewed/req, continue antibiotics, social secretary, respiratory therapy Continue oxygen to maintain saturation above 92%, wean off oxygen as tolerated More than likely patient will need home oxygen upon discharge Medication reviewed and continue provide symptomatic and supportive care Ambulate as tolerated Teach patient about insulin Tomorrow we will repeat labs including inflammatory marker Reduce dexamethasone once daily, Continue cefepime
[2020-10-23] MEDS: Insulin Glargine 20 UNITS in Pre-Filled Syringe 1 EACH SC SCH (21:22)
[2020-10-24 05:34] LABS: ALT (SGPT) 95 U/L (8-55); AST (SGOT) 38 U/L (5-34); Albumin 2.8 g/dL (3.4-4.8); Alkaline Phosphatase 269 U/L (40-110); Anion Gap 11 mmol/L (10-20); BUN (Urea Nitrogen) 17 mg/dL (8.4-25.7); Bilirubin, Total 0.7 mg/dL (0.2-1.2); CRP (Inflammatory) Less than 0.50 mg/dL (= or < 0.5); Calc. Creatinine Clearance 107 mL/min (70-130); Calcium 8.2 mg/dL (7.8-10.44); Carbon Dioxide 25 mmol/L (23-31); Chloride 101 mmol/L (98-107); Glucose 92 mg/dL (80-115); Potassium 4.4 mmol/L (3.5-5.1); Protein, Total 5.8 g/dL (5.8-8.1); Sodium 133 mmol/L (136-145)
[2020-10-24 05:49] LABS: Band 7 % (5-11); Eosinophils 1 % (0-10); Hemoglobin 16.3 g/dL (14.0-18.0); Lymphocytes 15 % (21-51); MDiff Complete? YES; Mean Corpuscular HGB CONC 35.2 g/dL (32.0-36.0); Mean Corpuscular Hemoglobin 33.8 pg (27.0-31.0); Mean Corpuscular Volume 96.1 fL (78.0-98.0); Mean Platelet Volume 7.1 fL (7.4-10.4); Monocytes 7 % (0-10); Myelocyte 3 % (0-0); Neutrophil 67 % (42-75); Platelet Count 257 thou/uL (130-400); RBC Distribution Width 12.3 % (11.5-14.5); Red Blood Cell (RBC) Count 4.83 mill/uL (4.70-6.10); White Blood Cell (WBC) Count 20.3 thou/uL (4.8-10.8)
[2020-10-24] MEDS: Albuterol 200 PUFF (6.7GM INHALER) INH SCH ×4 (08:13→19:53)
[2020-10-24] MEDS: Colchicine 0.3 MG TAB PO SCH ×2 (08:37→21:40)
[2020-10-24] MEDS: Cholecalciferol (Vitamin D3) 400 UNITS TAB PO SCH (08:37)
[2020-10-24] MEDS: Cefdinir 300 MG CAP PO SCH ×2 (08:37→21:40)
[2020-10-24] MEDS: Enoxaparin Sodium 40 MG/0.4 ML SYRINGE SC SCH ×2 (08:37→21:41)
[2020-10-24] MEDS: Dexamethasone 4 mg/ml Vial SLOW IVP SCH (08:38)
[2020-10-24] MEDS: Ascorbic Acid 500 mg Chewable Tablet PO SCH (08:38)
[2020-10-24] MEDS: Zinc Sulfate 220 MG CAP PO SCH (08:38)
[2020-10-24] MEDS: Insulin Glargine 10 UNITS in Pre-Filled Syringe 1 EACH SC SCH (09:55)
--- NOTE | 2020-10-24 11:05 | PDOC.HOSPP ---
- Subjective Encounter Date: 10/24/20 Encounter Time: 08:00 Subjective: Patient seen and examined. No new complaints. No overnight events - Objective Vital Signs & Weight: Vital Signs (12 hours) Temp Pulse Resp BP BP Pulse Ox 10/24/20 07:30 98.4 F 87 30 H 117/82 100 10/24/20 03:55 97.7 F 73 20 112/73 100 10/24/20 00:00 98.3 F 89 16 113/77 100 Weight Admit Weight 131 lb 6.4 oz Weight 131 lb 6.4 oz I&O: 10/23/20 10/24/20 10/25/20 06:59 06:59 06:59 Intake Total 1025 1090 Output Total 1550 1100 Balance -525 -10 Result Diagrams: 10/24/20 04:51 10/24/20 04:51 Additional Labs: Accuchecks 10/24/20 10/24/20 10/23/20 10:42 04:25 21:26 POC Glucose 375 H 110 H 263 H 10/23/20 10/23/20 15:51 10:59 POC Glucose 329 H 201 H EKG Reviewed by me: Yes Hospitalist ROS - Review of Systems Constitutional: reports: weakness, malaise. denies: fever, chills, sweats, other Respiratory: reports: cough, shortness of breath, SOB with excertion. denies: dry, hemoptysis, pleuritic pain, sputum, wheezing, other Cardiovascular: denies: chest pain, palpitations, orthopnea, paroxysmal noc. dyspnea, edema, light headedness, other Gastrointestinal: denies: nausea, vomiting, abdominal pain, diarrhea, constipation, melena, hematochezia, other Genitourinary: denies: dysuria, frequency, incontinence, hematuria, retention, other Musculoskeletal: denies: neck pain, shoulder pain, arm pain, back pain, hand pain, leg pain, foot pain, other - Medication Medications: Active Medications Generic Name Dose Route Start Last Admin Trade Name Freq PRN Reason Stop Dose Admin Albuterol Sulfate 2 puff 10/20/20 11:00 10/24/20 08:13 Albuterol 200 Puff (6.7gm Inhaler) INH 2 puff QID-RT LOLA Administration Ascorbic Acid 1,000 mg 10/14/20 09:00 10/24/20 08:38 Ascorbic Acid 500 Mg Chewable Tablet PO 1,000 mg DAILY LOLA Administration Benzonatate 100 mg 10/23/20 08:13 10/24/20 09:55 Benzonatate 100 Mg Cap PO 100 mg Q6H PRN Administration Cough Cefdinir 300 mg 10/24/20 09:00 10/24/20 08:37 Cefdinir 300 Mg Cap PO 300 mg BID LOLA Administration Cholecalciferol 400 units 10/14/20 09:00 10/24/20 08:37 Cholecalciferol (Vitamin D3) 400 Units Tab PO 400 units DAILY LOLA Administration Colchicine 0.3 mg 10/15/20 21:00 10/24/20 08:37 Colchicine 0.3 Mg Tab PO 0.3 mg BID LOLA Administration Dexamethasone 6 mg 10/23/20 09:00 10/24/20 08:38 Dexamethasone 4 Mg/Ml Vial SLOW IVP 6 mg DAILY LOLA Administration Enoxaparin Sodium 40 mg 10/17/20 21:00 10/24/20 08:37 Enoxaparin Sodium 40 Mg/0.4 Ml Syringe SC 40 mg BID LOLA Administration Insulin Glargine 20 units/ 0.2 mls @ 0 mls/hr 10/14/20 21:00 10/23/20 21:22 Miscellaneous Medication SC 0.2 mls HS LOLA Administration Insulin Glargine 10 units/ 0.1 mls @ 0 mls/hr 10/20/20 09:00 10/24/20 09:55 Miscellaneous Medication SC 0.1 mls QAM LOLA Administration Insulin Human Lispro 0 units 10/14/20 13:43 10/23/20 21:35 Humalog 300 Units/3 Ml Vial SC 9 unit .AGGRESSIVE SLIDING PRN Administration Aggressive Correctional Scale Pantoprazole Sodium 40 mg 10/19/20 09:00 10/24/20 08:38 Pantoprazole 40 Mg Tab PO 40 mg DAILY LOLA Administration Sodium Chloride 10 ml 10/15/20 09:00 10/24/20 08:37 Flush - Normal Saline 10 Ml Syringe IVF 10 ml Q12HR LOLA Administration Throat Lozenges 1 jenifer 10/21/20 16:47 10/21/20 19:22 Cepastat Lozenges 1 Jenifer PO 1 jenifer Q1H PRN Administration Cough Zinc Sulfate 220 mg 10/14/20 09:00 10/24/20 08:38 Zinc Sulfate 220 Mg Cap PO 220 mg DAILY LOLA Administration Hospitalist Exam Vitals: Vital Signs (12 hours) Temp Pulse Resp BP BP Pulse Ox 10/24/20 07:30 98.4 F 87 30 H 117/82 100 10/24/20 03:55 97.7 F 73 20 112/73 100 10/24/20 00:00 98.3 F 89 16 113/77 100 Weight Admit Weight 131 lb 6.4 oz Weight 131 lb 6.4 oz General Appearance: NAD, awake alert Eye: PERRL, anicteric sclera ENT: normocephalic atraumatic, no oropharyngeal lesions Neck: symmetric, no JVD, no thyromegaly Heart: no murmur, no gallops, no rubs Respiratory: no wheezes, no rales, no ronchi Gastrointestinal: soft, non-tender, non-distended, normal bowel sounds Extremities: no cyanosis, no clubbing, no edema Skin: normal turgor, no lesions Neurological: no focal deficits Musculoskeletal: normal tone, normal strength Psychiatric: normal affect, normal behavior Hosp A/P (1) Acute respiratory failure due to COVID-19 Code(s): U07.1 - COVID-19; J96.00 - ACUTE RESPIRATORY FAILURE, UNSP W HYPOXIA OR HYPERCAPNIA Status: Acute (2) Hyponatremia Code(s): E87.1 - HYPO-OSMOLALITY AND HYPONATREMIA Status: Resolved (3) Pneumonia due to COVID-19 virus Code(s): U07.1 - COVID-19; J12.82 - PNEUMONIA DUE TO CORONAVIRUS DISEASE 2019 Status: Acute (4) Rhabdomyolysis Code(s): M62.82 - RHABDOMYOLYSIS Status: Resolved (5) Diabetes Code(s): E11.9 - TYPE 2 DIABETES MELLITUS WITHOUT COMPLICATIONS Status: Chronic Qualifiers: Diabetes mellitus type: type 2 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
[2020-10-24] MEDS: HumaLOG 300 UNITS/3 ML VIAL SC PRN ×2 (12:32→21:42)
[2020-10-24] MEDS: Insulin Glargine 20 UNITS in Pre-Filled Syringe 1 EACH SC SCH (21:41)
[2020-10-25 05:49] LABS: Anion Gap 15 mmol/L (10-20); BUN (Urea Nitrogen) 21 mg/dL (8.4-25.7); Calc. Creatinine Clearance 123 mL/min (70-130); Calcium 8.1 mg/dL (7.8-10.44); Carbon Dioxide 22 mmol/L (23-31); Chloride 100 mmol/L (98-107); Glucose 67 mg/dL (80-115); Potassium 4.7 mmol/L (3.5-5.1); Sodium 132 mmol/L (136-145)
[2020-10-25 05:53] LABS: Hemoglobin 15.3 g/dL (14.0-18.0); Mean Corpuscular HGB CONC 34.1 g/dL (32.0-36.0); Mean Corpuscular Hemoglobin 32.5 pg (27.0-31.0); Mean Corpuscular Volume 95.3 fL (78.0-98.0); Mean Platelet Volume 7.3 fL (7.4-10.4); Platelet Count 281 thou/uL (130-400); RBC Distribution Width 12.2 % (11.5-14.5); Red Blood Cell (RBC) Count 4.71 mill/uL (4.70-6.10); White Blood Cell (WBC) Count 24.5 thou/uL (4.8-10.8)
[2020-10-25 05:55] LABS: Band 12 % (5-11); Lymphocytes 8 % (21-51); MDiff Complete? YES; Monocytes 6 % (0-10); Myelocyte 7 % (0-0); Neutrophil 67 % (42-75)
[2020-10-25] MEDS: Albuterol 200 PUFF (6.7GM INHALER) INH SCH ×4 (06:39→18:13)
[2020-10-25] MEDS: Enoxaparin Sodium 40 MG/0.4 ML SYRINGE SC SCH ×2 (08:33→20:32)
[2020-10-25] MEDS: Dexamethasone 4 mg/ml Vial SLOW IVP SCH (08:33)
[2020-10-25] MEDS: Cefdinir 300 MG CAP PO SCH ×2 (08:33→20:31)
[2020-10-25] MEDS: Cholecalciferol (Vitamin D3) 400 UNITS TAB PO SCH (08:33)
[2020-10-25] MEDS: Ascorbic Acid 500 mg Chewable Tablet PO SCH (08:33)
[2020-10-25] MEDS: Colchicine 0.3 MG TAB PO SCH ×2 (08:33→20:32)
[2020-10-25] MEDS: Zinc Sulfate 220 MG CAP PO SCH (08:34)
[2020-10-25] MEDS: Insulin Glargine 15 UNITS in Pre-Filled Syringe 1 EACH SC SCH (09:26)
--- NOTE | 2020-10-25 11:16 | PDOC.HOSPP ---
- Subjective Encounter Date: 10/25/20 Encounter Time: 08:20 Subjective: Patient seen and examined. No new complaints. No overnight events - Objective Vital Signs & Weight: Vital Signs (12 hours) Temp Pulse Resp BP BP BP Pulse Ox 10/25/20 08:28 98.5 F 78 27 H 146/88 H 100 10/25/20 03:49 97.8 F 72 20 108/78 100 10/25/20 03:24 92 L 10/25/20 00:00 93 L 10/24/20 23:22 97.8 F 107 H 14 138/93 H 95 Weight Admit Weight 131 lb 6.4 oz Weight 131 lb 6.4 oz I&O: 10/24/20 10/25/20 10/26/20 06:59 06:59 06:59 Intake Total 1090 1180 Output Total 1100 Balance -10 1180 Result Diagrams: 10/25/20 04:46 10/25/20 04:46 Additional Labs: Accuchecks 10/25/20 10/25/20 10/24/20 10:27 08:45 21:28 POC Glucose 312 H 94 303 H 10/24/20 16:36 POC Glucose 200 H Hospitalist ROS - Review of Systems Constitutional: reports: weakness. denies: fever, chills, sweats, malaise, other Respiratory: reports: cough, shortness of breath, SOB with excertion. denies: dry, hemoptysis, pleuritic pain, sputum, wheezing, other Cardiovascular: denies: chest pain, palpitations, orthopnea, paroxysmal noc. dyspnea, edema, light headedness, other Gastrointestinal: denies: nausea, vomiting, abdominal pain, diarrhea, constipation, melena, hematochezia, other Genitourinary: denies: dysuria, frequency, incontinence, hematuria, retention, other Musculoskeletal: denies: neck pain, shoulder pain, arm pain, back pain, hand pain, leg pain, foot pain, other - Medication Medications: Active Medications Generic Name Dose Route Start Last Admin Trade Name Freq PRN Reason Stop Dose Admin Albuterol Sulfate 2 puff 10/20/20 11:00 10/25/20 10:55 Albuterol 200 Puff (6.7gm Inhaler) INH 2 puff QID-RT LOLA Administration Ascorbic Acid 1,000 mg 10/14/20 09:00 10/25/20 08:33 Ascorbic Acid 500 Mg Chewable Tablet PO 1,000 mg DAILY LOLA Administration Benzonatate 100 mg 10/23/20 08:13 10/24/20 09:55 Benzonatate 100 Mg Cap PO 100 mg Q6H PRN Administration Cough Cefdinir 300 mg 10/24/20 09:00 10/25/20 08:33 Cefdinir 300 Mg Cap PO 300 mg BID LOLA Administration Cholecalciferol 400 units 10/14/20 09:00 10/25/20 08:33 Cholecalciferol (Vitamin D3) 400 Units Tab PO 400 units DAILY LOLA Administration Colchicine 0.3 mg 10/15/20 21:00 10/25/20 08:33 Colchicine 0.3 Mg Tab PO 0.3 mg BID LOLA Administration Dexamethasone 6 mg 10/23/20 09:00 10/25/20 08:33 Dexamethasone 4 Mg/Ml Vial SLOW IVP 6 mg DAILY LOLA Administration Enoxaparin Sodium 40 mg 10/17/20 21:00 10/25/20 08:33 Enoxaparin Sodium 40 Mg/0.4 Ml Syringe SC 40 mg BID LOLA Administration Insulin Glargine 15 units/ 0.15 mls @ 0 mls/hr 10/25/20 09:00 10/25/20 09:26 Miscellaneous Medication SC Not Given QAM [facility] Insulin Human Lispro 0 units 10/14/20 13:43 10/24/20 21:42 Humalog 300 Units/3 Ml Vial SC 11 unit .AGGRESSIVE SLIDING PRN Administration Aggressive Correctional Scale Pantoprazole Sodium 40 mg 10/19/20 09:00 10/25/20 08:33 Pantoprazole 40 Mg Tab PO 40 mg DAILY [facility] Administration Sodium Chloride 10 ml 10/15/20 09:00 10/25/20 08:32 Flush - Normal Saline 10 Ml Syringe IVF 10 ml Q12HR LOLA Administration Throat Lozenges 1 jenifer 10/21/20 16:47 10/21/20 19:22 Cepastat Lozenges 1 Jenifer PO 1 jenifer Q1H PRN Administration Cough Zinc Sulfate 220 mg 10/14/20 09:00 10/25/20 08:34 Zinc Sulfate 220 Mg Cap PO 220 mg DAILY LOLA Administration Hospitalist Exam Vitals: Vital Signs (12 hours) Temp Pulse Resp BP BP BP Pulse Ox 10/25/20 08:28 98.5 F 78 27 H 146/88 H 100 10/25/20 03:49 97.8 F 72 20 108/78 100 10/25/20 03:24 92 L 10/25/20 00:00 93 L 10/24/20 23:22 97.8 F 107 H 14 138/93 H 95 Weight Admit Weight 131 lb 6.4 oz Weight 131 lb 6.4 oz General Appearance: NAD, awake alert Eye: PERRL, anicteric sclera ENT: normocephalic atraumatic, no oropharyngeal lesions Neck: supple, symmetric, no JVD, no thyromegaly Heart: no murmur, no gallops, no rubs Respiratory: no wheezes, no rales, no ronchi Gastrointestinal: soft, non-tender, non-distended, normal bowel sounds Extremities: no clubbing, no edema Skin: normal turgor, no lesions Neurological: no focal deficits Musculoskeletal: normal tone, normal strength Psychiatric: normal affect, normal behavior, A&O x 3 Hosp A/P (1) Acute respiratory failure due to COVID-19 Code(s): U07.1 - COVID-19; J96.00 - ACUTE RESPIRATORY FAILURE, UNSP W HYPOXIA OR HYPERCAPNIA Status: Acute (2) Hyponatremia Code(s): E87.1 - HYPO-OSMOLALITY AND HYPONATREMIA Status: Resolved (3) Pneumonia due to COVID-19 virus Code(s): U07.1 - COVID-19; J12.82 - PNEUMONIA DUE TO CORONAVIRUS DISEASE 2019 Status: Acute (4) Rhabdomyolysis Code(s): M62.82 - RHABDOMYOLYSIS Status: Resolved (5) Diabetes Code(s): E11.9 - TYPE 2 DIABETES MELLITUS WITHOUT COMPLICATIONS Status: Chronic Qualifiers: Diabetes mellitus type: type 2 Diabetes mellitus shelter insulin use: without shelter use - Plan old records reviewed/req, continue antibiotics, respiratory therapy Patient is still requiring increased amount of oxygen, he is not ready for discharge Continue Omnicef Continue Lovenox for DVT prophylaxis Ambulate as tolerated Wean off oxygen as tolerated With exertion his oxygen saturation significantly drops, I have updated plan of care to patient's family member on phone
[2020-10-25] MEDS: HumaLOG 300 UNITS/3 ML VIAL SC PRN ×3 (12:31→20:33)
[2020-10-25] MEDS: Insulin Glargine 25 UNITS in Pre-Filled Syringe 1 EACH SC SCH (20:34)
[2020-10-26 05:43] LABS: Anion Gap 11 mmol/L (10-20); BUN (Urea Nitrogen) 18 mg/dL (8.4-25.7); CRP (Inflammatory) Less than 0.50 mg/dL (= or < 0.5); Calc. Creatinine Clearance 113 mL/min (70-130); Calcium 8.1 mg/dL (7.8-10.44); Carbon Dioxide 27 mmol/L (23-31); Chloride 101 mmol/L (98-107); Glucose 76 mg/dL (80-115); Hemoglobin 14.9 g/dL (14.0-18.0); Mean Corpuscular HGB CONC 34.3 g/dL (32.0-36.0); Mean Corpuscular Hemoglobin 32.4 pg (27.0-31.0); Mean Corpuscular Volume 94.5 fL (78.0-98.0); Mean Platelet Volume 7.2 fL (7.4-10.4); Platelet Count 270 thou/uL (130-400); Potassium 3.9 mmol/L (3.5-5.1); RBC Distribution Width 12.4 % (11.5-14.5); Sodium 135 mmol/L (136-145); White Blood Cell (WBC) Count 23.1 thou/uL (4.8-10.8)
[2020-10-26 06:25] LABS: Band 11 % (5-11); Lymphocytes 22 % (21-51); MDiff Complete? YES; Monocytes 7 % (0-10); Myelocyte 2 % (0-0); Neutrophil 57 % (42-75); Reactive Lymphocytes 1 % (0-10)
[2020-10-26] MEDS: Ascorbic Acid 500 mg Chewable Tablet PO SCH (07:39)
[2020-10-26] MEDS: Cholecalciferol (Vitamin D3) 400 UNITS TAB PO SCH (07:39)
[2020-10-26] MEDS: Dexamethasone 4 mg/ml Vial SLOW IVP SCH (07:39)
[2020-10-26] MEDS: Zinc Sulfate 220 MG CAP PO SCH (07:39)
[2020-10-26] MEDS: Cefdinir 300 MG CAP PO SCH ×2 (07:39→21:00)
[2020-10-26] MEDS: Enoxaparin Sodium 40 MG/0.4 ML SYRINGE SC SCH ×2 (07:40→21:00)
[2020-10-26] MEDS: Albuterol 200 PUFF (6.7GM INHALER) INH SCH ×4 (07:44→19:04)
[2020-10-26] MEDS: Colchicine 0.3 MG TAB PO SCH ×2 (07:52→21:00)
[2020-10-26] MEDS: Insulin Glargine 15 UNITS in Pre-Filled Syringe 1 EACH SC SCH (08:00)
[2020-10-26] MEDS: HumaLOG 300 UNITS/3 ML VIAL SC PRN ×3 (12:03→21:09)
--- NOTE | 2020-10-26 12:55 | PDOC.HOSPP ---
- Subjective Encounter Date: 10/26/20 Encounter Time: 09:40 Subjective: Patient seen and examined. No new complaints. No overnight events - Objective Vital Signs & Weight: Vital Signs (12 hours) Temp Pulse Resp BP BP Pulse Ox 10/26/20 11:30 98.2 F 96 32 H 130/88 96 10/26/20 11:15 98.0 F 69 14 117/82 100 10/26/20 07:55 95 10/26/20 07:45 96 10/26/20 07:35 97.1 F L 77 14 138/86 95 10/26/20 04:21 100 10/26/20 04:00 98.0 F 64 14 105/65 99 Weight Admit Weight 131 lb 6.4 oz Weight 131 lb 6.4 oz I&O: 10/25/20 10/26/20 10/27/20 06:59 06:59 06:59 Intake Total 1180 1410 Output Total 801 525 Balance 1180 609 -525 Result Diagrams: 10/26/20 04:49 10/26/20 04:49 Additional Labs: Accuchecks 10/26/20 10/26/20 10/25/20 10:53 04:26 20:33 POC Glucose 303 H 68 L 289 H 10/25/20 16:25 POC Glucose 190 H EKG Reviewed by me: Yes Hospitalist ROS - Review of Systems ENT: denies: ear pain, ear discharge, nose pain, nose discharge, nose congestion, mouth pain, mouth swelling, throat pain, throat swelling, other Respiratory: denies: cough, dry, shortness of breath, hemoptysis, SOB with excertion, pleuritic pain, sputum, wheezing, other Cardiovascular: denies: chest pain, palpitations, orthopnea, paroxysmal noc. dyspnea, edema, light headedness, other Gastrointestinal: denies: nausea, vomiting, abdominal pain, diarrhea, constipation, melena, hematochezia, other Genitourinary: denies: dysuria, frequency, incontinence, hematuria, retention, other Musculoskeletal: denies: neck pain, shoulder pain, arm pain, back pain, hand pain, leg pain, foot pain, other - Medication Medications: Active Medications Generic Name Dose Route Start Last Admin Trade Name Freq PRN Reason Stop Dose Admin Albuterol Sulfate 2 puff 10/20/20 11:00 10/26/20 11:19 Albuterol 200 Puff (6.7gm Inhaler) INH 2 puff QID-RT LOLA Administration Ascorbic Acid 1,000 mg 10/14/20 09:00 10/26/20 07:39 Ascorbic Acid 500 Mg Chewable Tablet PO 1,000 mg DAILY LOLA Administration Benzonatate 100 mg 10/23/20 08:13 10/24/20 09:55 Benzonatate 100 Mg Cap PO 100 mg Q6H PRN Administration Cough Cefdinir 300 mg 10/24/20 09:00 10/26/20 07:39 Cefdinir 300 Mg Cap PO 300 mg BID LOLA Administration Cholecalciferol 400 units 10/14/20 09:00 10/26/20 07:39 Cholecalciferol (Vitamin D3) 400 Units Tab PO 400 units DAILY LOLA Administration Colchicine 0.3 mg 10/15/20 21:00 10/26/20 07:52 Colchicine 0.3 Mg Tab PO 0.3 mg BID LOLA Administration Dexamethasone 6 mg 10/23/20 09:00 10/26/20 07:39 Dexamethasone 4 Mg/Ml Vial SLOW IVP 6 mg DAILY LOLA Administration Enoxaparin Sodium 40 mg 10/17/20 21:00 10/26/20 07:40 Enoxaparin Sodium 40 Mg/0.4 Ml Syringe SC 40 mg BID LOLA Administration Insulin Glargine 15 units/ 0.15 mls @ 0 mls/hr 10/25/20 09:00 10/26/20 08:00 Miscellaneous Medication SC Not Given QAM [facility] Insulin Glargine 25 units/ 0.25 mls @ 0 mls/hr 10/25/20 21:00 10/25/20 20:34 Miscellaneous Medication SC 0.25 mls HS LOLA Administration Insulin Human Lispro 0 units 10/14/20 13:43 10/26/20 12:03 Humalog 300 Units/3 Ml Vial SC 11 unit .AGGRESSIVE SLIDING PRN Administration Aggressive [employer]al Scale Pantoprazole Sodium 40 mg 10/19/20 09:00 10/26/20 07:39 Pantoprazole 40 Mg Tab PO 40 mg DAILY LOLA Administration Sodium Chloride 10 ml 10/15/20 09:00 10/26/20 07:40 Flush - Normal Saline 10 Ml Syringe IVF 10 ml Q12HR LOLA Administration Throat Lozenges 1 jenifer 10/21/20 16:47 10/21/20 19:22 Cepastat Lozenges 1 Jenifer PO 1 jenifer Q1H PRN Administration Cough Zinc Sulfate 220 mg 10/14/20 09:00 10/26/20 07:39 Zinc Sulfate 220 Mg Cap PO 220 mg DAILY LOLA Administration Hospitalist Exam Vitals: Vital Signs (12 hours) Temp Pulse Resp BP BP Pulse Ox 10/26/20 11:30 98.2 F 96 32 H 130/88 96 10/26/20 11:15 98.0 F 69 14 117/82 100 10/26/20 07:55 95 10/26/20 07:45 96 10/26/20 07:35 97.1 F L 77 14 138/86 95 10/26/20 04:21 100 10/26/20 04:00 98.0 F 64 14 105/65 99 Weight Admit Weight 131 lb 6.4 oz Weight 131 lb 6.4 oz General Appearance: NAD, awake alert Eye: PERRL, anicteric sclera ENT: normocephalic atraumatic, no oropharyngeal lesions Neck: supple, symmetric, no JVD, no thyromegaly Heart: RRR, no murmur, no gallops, no rubs Respiratory: no wheezes, no rales, no ronchi Gastrointestinal: soft, non-tender, non-distended, normal bowel sounds Extremities: no cyanosis, no clubbing Skin: normal turgor, no lesions Neurological: no focal deficits Musculoskeletal: normal tone, normal strength Psychiatric: normal affect, normal behavior Hosp A/P (1) Acute respiratory failure due to COVID-19 Code(s): U07.1 - COVID-19; J96.00 - ACUTE RESPIRATORY FAILURE, UNSP W HYPOXIA OR HYPERCAPNIA Status: Acute (2) Hyponatremia Code(s): E87.1 - HYPO-OSMOLALITY AND HYPONATREMIA Status: Resolved (3) Pneumonia due to COVID-19 virus Code(s): U07.1 - COVID-19; J12.82 - PNEUMONIA DUE TO CORONAVIRUS DISEASE 2019 Status: Acute (4) Rhabdomyolysis Code(s): M62.82 - RHABDOMYOLYSIS Status: Resolved (5) Diabetes Code(s): E11.9 - TYPE 2 DIABETES MELLITUS WITHOUT COMPLICATIONS Status: Chronic Qualifiers: Diabetes mellitus 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
[2020-10-26] MEDS: Insulin Glargine 25 UNITS in Pre-Filled Syringe 1 EACH SC SCH (21:07)
[2020-10-27] MEDS: Albuterol 200 PUFF (6.7GM INHALER) INH SCH ×4 (07:20→18:59)
[2020-10-27] MEDS: Insulin Glargine 15 UNITS in Pre-Filled Syringe 1 EACH SC SCH (08:28)
[2020-10-27] MEDS: Colchicine 0.3 MG TAB PO SCH ×2 (08:29→20:42)
[2020-10-27] MEDS: Cholecalciferol (Vitamin D3) 400 UNITS TAB PO SCH (08:30)
[2020-10-27] MEDS: Cefdinir 300 MG CAP PO SCH ×2 (08:30→20:42)
[2020-10-27] MEDS: Zinc Sulfate 220 MG CAP PO SCH (08:30)
[2020-10-27] MEDS: Ascorbic Acid 500 mg Chewable Tablet PO SCH (08:30)
[2020-10-27] MEDS: Dexamethasone 4 mg/ml Vial SLOW IVP SCH (08:30)
[2020-10-27] MEDS: Enoxaparin Sodium 40 MG/0.4 ML SYRINGE SC SCH ×2 (08:30→20:42)
--- NOTE | 2020-10-27 10:55 | PDOC.HOSPP ---
- Subjective Encounter Date: 10/27/20 Encounter Time: 09:10 Subjective: Patient is still on 6 L nasal cannula oxygen, with exertion he gets out of breath, his oxygen saturation drops with exertion, no overnight event, no fever, - Objective Vital Signs & Weight: Vital Signs (12 hours) Temp Pulse Resp BP BP Pulse Ox 10/27/20 07:23 98.5 F 78 20 119/79 99 10/27/20 04:00 98.1 F 81 16 126/77 100 Weight Admit Weight 131 lb 6.4 oz Weight 131 lb 6.4 oz I&O: 10/26/20 10/27/20 10/28/20 06:59 06:59 06:59 Intake Total 1410 Output Total 801 525 Balance 609 -525 Result Diagrams: 10/26/20 04:49 10/26/20 04:49 Additional Labs: Accuchecks 10/27/20 10/26/20 10/26/20 05:23 21:04 16:40 POC Glucose 81 255 H 291 H 10/26/20 10:53 POC Glucose 303 H EKG Reviewed by me: Yes Hospitalist ROS - Review of Systems Respiratory: reports: shortness of breath, SOB with excertion. denies: cough, dry, hemoptysis, pleuritic pain, sputum, wheezing, other Cardiovascular: denies: chest pain, palpitations, orthopnea, paroxysmal noc. dyspnea, edema, light headedness, other Gastrointestinal: denies: nausea, vomiting, abdominal pain, diarrhea, constipation, melena, hematochezia, other Genitourinary: denies: dysuria, frequency, incontinence, hematuria, retention, other Musculoskeletal: denies: neck pain, shoulder pain, arm pain, back pain, hand pain, leg pain, foot pain, other - Medication Medications: Active Medications Generic Name Dose Route Start Last Admin Trade Name Freq PRN Reason Stop Dose Admin Albuterol Sulfate 2 puff 10/20/20 11:00 10/27/20 10:44 Albuterol 200 Puff (6.7gm Inhaler) INH 2 puff QID-RT LOLA Administration Ascorbic Acid 1,000 mg 10/14/20 09:00 10/27/20 08:30 Ascorbic Acid 500 Mg Chewable Tablet PO 1,000 mg DAILY LOLA Administration Benzonatate 100 mg 10/23/20 08:13 10/24/20 09:55 Benzonatate 100 Mg Cap PO 100 mg Q6H PRN Administration Cough Cefdinir 300 mg 10/24/20 09:00 10/27/20 08:30 Cefdinir 300 Mg Cap PO 300 mg BID LOLA Administration Cholecalciferol 400 units 10/14/20 09:00 10/27/20 08:30 Cholecalciferol (Vitamin D3) 400 Units Tab PO 400 units DAILY LOLA Administration Colchicine 0.3 mg 10/15/20 21:00 10/27/20 08:29 Colchicine 0.3 Mg Tab PO 0.3 mg BID LOLA Administration Dexamethasone 6 mg 10/23/20 09:00 10/27/20 08:30 Dexamethasone 4 Mg/Ml Vial SLOW IVP 6 mg DAILY LOLA Administration Enoxaparin Sodium 40 mg 10/17/20 21:00 10/27/20 08:30 Enoxaparin Sodium 40 Mg/0.4 Ml Syringe SC 40 mg BID LOLA Administration Insulin Glargine 15 units/ 0.15 mls @ 0 mls/hr 10/25/20 09:00 10/27/20 08:28 Miscellaneous Medication SC 0.15 mls QAM LOLA Administration Insulin Glargine 25 units/ 0.25 mls @ 0 mls/hr 10/25/20 21:00 10/26/20 21:07 Miscellaneous Medication SC 0.25 mls HS LOLA Administration Insulin Human Lispro 0 units 10/14/20 13:43 10/26/20 21:09 Humalog 300 Units/3 Ml Vial SC 9 unit .AGGRESSIVE SLIDING PRN Administration Aggressive [employer]al Scale Pantoprazole Sodium 40 mg 10/19/20 09:00 10/27/20 08:30 Pantoprazole 40 Mg Tab PO 40 mg DAILY LOLA Administration Sodium Chloride 10 ml 10/15/20 09:00 10/27/20 08:29 Flush - Normal Saline 10 Ml Syringe IVF 10 ml Q12HR LOLA Administration Throat Lozenges 1 jenifer 10/21/20 16:47 10/21/20 19:22 Cepastat Lozenges 1 Jenifer PO 1 jenifer Q1H PRN Administration Cough Zinc Sulfate 220 mg 10/14/20 09:00 10/27/20 08:30 Zinc Sulfate 220 Mg Cap PO 220 mg DAILY LOLA Administration Hospitalist Exam Vitals: Vital Signs (12 hours) Temp Pulse Resp BP BP Pulse Ox 10/27/20 07:23 98.5 F 78 20 119/79 99 10/27/20 04:00 98.1 F 81 16 126/77 100 Weight Admit Weight 131 lb 6.4 oz Weight 131 lb 6.4 oz General Appearance: NAD, awake alert Eye: PERRL, anicteric sclera ENT: normocephalic atraumatic, no oropharyngeal lesions Neck: supple, symmetric, no JVD, no thyromegaly Heart: no murmur, no gallops, no rubs Respiratory: no wheezes, no rales, no ronchi Gastrointestinal: soft, non-tender, non-distended, normal bowel sounds Extremities: no clubbing, no edema Skin: normal turgor, no lesions Neurological: no focal deficits Musculoskeletal: normal tone, normal strength Psychiatric: normal affect, normal behavior Hosp A/P (1) Acute respiratory failure due to COVID-19 Code(s): U07.1 - COVID-19; J96.00 - ACUTE RESPIRATORY FAILURE, UNSP W HYPOXIA OR HYPERCAPNIA Status: Acute (2) Hyponatremia Code(s): E87.1 - HYPO-OSMOLALITY AND HYPONATREMIA Status: Resolved (3) Pneumonia due to COVID-19 virus Code(s): U07.1 - COVID-19; J12.82 - PNEUMONIA DUE TO CORONAVIRUS DISEASE 2019 Status: Acute (4) Rhabdomyolysis Code(s): M62.82 - RHABDOMYOLYSIS Status: Resolved (5) Diabetes Code(s): E11.9 - TYPE 2 DIABETES MELLITUS WITHOUT COMPLICATIONS Status: Chronic Qualifiers: Diabetes mellitus type: type 2 Diabetes mellitus 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
[2020-10-27] MEDS: HumaLOG 300 UNITS/3 ML VIAL SC PRN (12:22)
[2020-10-27] MEDS: Insulin Glargine 25 UNITS in Pre-Filled Syringe 1 EACH SC SCH (20:43)
[2020-10-28] MEDS: Albuterol 200 PUFF (6.7GM INHALER) INH SCH ×4 (07:21→18:38)
[2020-10-28] MEDS: Insulin Glargine 15 UNITS in Pre-Filled Syringe 1 EACH SC SCH (08:36)
[2020-10-28] MEDS: Enoxaparin Sodium 40 MG/0.4 ML SYRINGE SC SCH ×2 (08:37→22:17)
[2020-10-28] MEDS: Zinc Sulfate 220 MG CAP PO SCH (08:38)
[2020-10-28] MEDS: Dexamethasone 4 mg/ml Vial SLOW IVP SCH (08:38)
[2020-10-28] MEDS: Cefdinir 300 MG CAP PO SCH ×2 (08:38→22:16)
[2020-10-28] MEDS: Ascorbic Acid 500 mg Chewable Tablet PO SCH (08:38)
[2020-10-28] MEDS: Colchicine 0.3 MG TAB PO SCH ×2 (08:38→22:37)
[2020-10-28] MEDS: Cholecalciferol (Vitamin D3) 400 UNITS TAB PO SCH (08:38)
[2020-10-28] MEDS: HumaLOG 300 UNITS/3 ML VIAL SC PRN ×2 (10:46→16:45)
--- NOTE | 2020-10-28 16:47 | PDOC.HOSPP ---
- Subjective Subjective: Patient was seen examined at bedside. He feels more short of breath after working with physical therapy. He is currently is on 5 L via nasal cannula. No fever. - Objective Vital Signs & Weight: Vital Signs (12 hours) Temp Pulse Resp BP BP Pulse Ox Pulse Ox 10/28/20 15:10 98.2 F 76 20 136/87 100 10/28/20 11:40 98.0 F 77 20 134/87 100 10/28/20 11:27 92 L 10/28/20 07:21 100 10/28/20 07:20 98.3 F 79 18 159/96 H 100 Pulse Ox 10/28/20 15:10 10/28/20 11:40 10/28/20 11:27 96 10/28/20 07:21 10/28/20 07:20 Weight Admit Weight 131 lb 6.4 oz Weight 131 lb 6.4 oz I&O: 10/27/20 10/28/20 10/29/20 06:59 06:59 06:59 Intake Total 1220 Output Total 525 Balance -525 1220 Result Diagrams: 10/26/20 04:49 10/26/20 04:49 Additional Labs: Accuchecks 10/28/20 10/28/20 10/28/20 16:30 10:15 07:27 POC Glucose 253 H 214 H 141 H 10/27/20 20:29 POC Glucose 293 H Radiology Reviewed by me: Yes EKG Reviewed by me: Yes Hospitalist ROS - Medication Medications: Active Medications Generic Name Dose Route Start Last Admin Trade Name Freq PRN Reason Stop Dose Admin Albuterol Sulfate 2 puff 10/20/20 11:00 10/28/20 14:14 Albuterol 200 Puff (6.7gm Inhaler) INH 2 puff QID-RT LOLA Administration Ascorbic Acid 1,000 mg 10/14/20 09:00 10/28/20 08:38 Ascorbic Acid 500 Mg Chewable Tablet PO 1,000 mg DAILY LOLA Administration Benzonatate 100 mg 10/23/20 08:13 10/24/20 09:55 Benzonatate 100 Mg Cap PO 100 mg Q6H PRN Administration Cough Cefdinir 300 mg 10/24/20 09:00 10/28/20 08:38 Cefdinir 300 Mg Cap PO 300 mg BID LOLA Administration Cholecalciferol 400 units 10/14/20 09:00 10/28/20 08:38 Cholecalciferol (Vitamin D3) 400 Units Tab PO 400 units DAILY LOLA Administration Colchicine 0.3 mg 10/15/20 21:00 10/28/20 08:38 Colchicine 0.3 Mg Tab PO 0.3 mg BID LOLA Administration Dexamethasone 6 mg 10/23/20 09:00 10/28/20 08:38 Dexamethasone 4 Mg/Ml Vial SLOW IVP 6 mg DAILY LOLA Administration Enoxaparin Sodium 40 mg 10/17/20 21:00 10/28/20 08:37 Enoxaparin Sodium 40 Mg/0.4 Ml Syringe SC 40 mg BID LOLA Administration Insulin Glargine 15 units/ 0.15 mls @ 0 mls/hr 10/25/20 09:00 10/28/20 08:36 Miscellaneous Medication SC 0.15 mls QAM LOLA Administration Insulin Glargine 25 units/ 0.25 mls @ 0 mls/hr 10/25/20 21:00 10/27/20 20:43 Miscellaneous Medication SC 0.25 mls HS LOLA Administration Insulin Human Lispro 0 units 10/14/20 13:43 10/28/20 10:46 Humalog 300 Units/3 Ml Vial SC 6 unit .AGGRESSIVE SLIDING PRN Administration Aggressive [employer]al Scale Pantoprazole Sodium 40 mg 10/19/20 09:00 10/28/20 08:38 Pantoprazole 40 Mg Tab PO 40 mg DAILY LOLA Administration Sodium Chloride 10 ml 10/15/20 09:00 10/28/20 08:38 Flush - Normal Saline 10 Ml Syringe IVF 10 ml Q12HR LOLA Administration Throat Lozenges 1 jenifer 10/21/20 16:47 10/21/20 19:22 Cepastat Lozenges 1 Jenifer PO 1 jenifer Q1H PRN Administration Cough Zinc Sulfate 220 mg 10/14/20 09:00 10/28/20 08:38 Zinc Sulfate 220 Mg Cap PO 220 mg DAILY LOLA Administration Hospitalist Exam Vitals: Vital Signs (12 hours) Temp Pulse Resp BP BP Pulse Ox Pulse Ox 10/28/20 15:10 98.2 F 76 20 136/87 100 10/28/20 11:40 98.0 F 77 20 134/87 100 10/28/20 11:27 92 L 10/28/20 07:21 100 10/28/20 07:20 98.3 F 79 18 159/96 H 100 Pulse Ox 10/28/20 15:10 10/28/20 11:40 10/28/20 11:27 96 10/28/20 07:21 10/28/20 07:20 Weight Admit Weight 131 lb 6.4 oz Weight 131 lb 6.4 oz General Appearance: NAD Eye: PERRL ENT: normocephalic atraumatic Neck: supple Heart: RRR Respiratory: CTAB Gastrointestinal: soft Extremities: no cyanosis Skin: normal turgor Neurological: cranial nerve grossly intact Musculoskeletal: normal tone Psychiatric: normal affect, normal behavior, A&O x 3 Hosp A/P (1) Acute respiratory failure due to COVID-19 Code(s): U07.1 - COVID-19; J96.00 - ACUTE RESPIRATORY FAILURE, UNSP W HYPOXIA OR HYPERCAPNIA Status: Acute (2) Pneumonia due to COVID-19 virus Code(s): U07.1 - COVID-19; J12.82 - PNEUMONIA DUE TO CORONAVIRUS DISEASE 2019 Status: Acute (3) Diabetes Code(s): E11.9 - TYPE 2 DIABETES MELLITUS WITHOUT COMPLICATIONS Status: Chronic Qualifiers: 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 Wean O2 as tolerated. Attempt to get him around 3 L before discharging home on home O2. Continue steroid, empiric antibiotic. Repeat labs in AM. Consult employment evaluator/case manager for home O2 Continue PT
[2020-10-28] MEDS: Insulin Glargine 25 UNITS in Pre-Filled Syringe 1 EACH SC SCH (22:17)
[2020-10-28] MEDS ORDERED: HumaLOG 300 UNITS/3 ML VIAL SC PRN (22:28)
[2020-10-29 05:35] LABS: #Eosinphils 0.1 thou/uL (0.0-0.7); #Lymphocytes 3.7 thou/uL (1.20-3.40); #Monocytes 1.3 thou/uL (0.11-0.59); #Neutrophils 12.7 thou/uL (1.40-6.50); %Basophils 0.3 % (0.0-1.0); %Eosinophils 0.3 % (0.0-10.0); %Lymphocytes 20.6 % (21.0-51.0); %Monocytes 7.4 % (0.0-10.0); %Neutrophils 71.5 % (42.0-75.0); Hemoglobin 13.8 g/dL (14.0-18.0); Mean Corpuscular HGB CONC 33.3 g/dL (32.0-36.0); Mean Corpuscular Hemoglobin 32.4 pg (27.0-31.0); Mean Corpuscular Volume 97.2 fL (78.0-98.0); Mean Platelet Volume 7.3 fL (7.4-10.4); Platelet Count 197 thou/uL (130-400); RBC Distribution Width 12.6 % (11.5-14.5); Red Blood Cell (RBC) Count 4.25 mill/uL (4.70-6.10); White Blood Cell (WBC) Count 17.8 thou/uL (4.8-10.8)
[2020-10-29 05:55] LABS: Anion Gap 11 mmol/L (10-20); BUN (Urea Nitrogen) 12 mg/dL (8.4-25.7); CRP (Inflammatory) Less than 0.50 mg/dL (= or < 0.5); Calc. Creatinine Clearance 123 mL/min (70-130); Carbon Dioxide 25 mmol/L (23-31); Chloride 100 mmol/L (98-107); Glucose 121 mg/dL (80-115); Potassium 3.7 mmol/L (3.5-5.1); Sodium 132 mmol/L (136-145)
[2020-10-29] MEDS: Albuterol 200 PUFF (6.7GM INHALER) INH SCH ×3 (06:51→13:56)
[2020-10-29] MEDS: Ascorbic Acid 500 mg Chewable Tablet PO SCH (09:32)
[2020-10-29] MEDS: Colchicine 0.3 MG TAB PO SCH (09:33)
[2020-10-29] MEDS: Cholecalciferol (Vitamin D3) 400 UNITS TAB PO SCH (09:33)
[2020-10-29] MEDS: Cefdinir 300 MG CAP PO SCH (09:33)
[2020-10-29] MEDS: Dexamethasone 4 mg/ml Vial SLOW IVP SCH (09:34)
[2020-10-29] MEDS: Enoxaparin Sodium 40 MG/0.4 ML SYRINGE SC SCH (09:35)
[2020-10-29] MEDS: Insulin Glargine 15 UNITS in Pre-Filled Syringe 1 EACH SC SCH (09:35)
[2020-10-29] MEDS: Zinc Sulfate 220 MG CAP PO SCH (09:38)
--- NOTE | 2020-10-29 09:53 | PDOC.DS.DS ---
Provider Date of Admission: 10/13/20 23:19 Date of Discharge: 10/29/20 Admitting Provider: Allan Chen MD Consultations: Pulmonary Primary Care Physician: [facility] Clinic Course Hospital Course: Patient is a pleasant 60 years old gentleman who has significant past medical history of diabetes type 2, hypertension, who has been recently diagnosed with COVID-19 infection, presented to ED with complaint of worsening short of breath and cough. He actually initially diagnosed with Covid about 4 weeks prior to admission at [facility], he was admitted there subsequently discharged home on oxygen. However for the past few days his symptoms have worsened. For that reason he came to the ER for further evaluation. Initial work-up in the ED, showed multifocal pneumonia on his chest x-ray consistent with histories of COVID-19 infection. Patient was hypoxic. He was subsequently admitted to hospitalist service for further management. Patient was started on empiric antibiotics with IV Decadron, O2 supplement. He was requires about 6 L of oxygen via nasal cannula, and quite hypoxic, however his symptoms significantly improve, and had weaned down to 2 L, and sometimes 1 L and has been satting well. He is doing significantly better. He noted no fever. His white count is trending down. At this time, he has reached his optimal hospital benefit, and is stable to discharge home on home O2. product support manager has been consulted to arrange home oxygen. He will be discharged home with low-dose Eliquis, 2.5 mg twice daily for 1 month. Slow taper prednisone/10 days. Patient to follow-up with his PCP in 1 to 2 weeks upon discharge. Resuscitation Status: 10/14/20 05:20 Resuscitation Status Routine Resuscitation Status: FULL: Full Resuscitation Lab Results: 10/29/20 05:07 10/29/20 05:07 Abnormal Lab Results - Last 48 hrs 10/29/20 05:07: Sodium 132 L, Creatinine 0.53 L 10/29/20 05:07: WBC 17.8 H, RBC 4.25 L, Hgb 13.8 L, Hct 41.3 L, MCH 32.4 H, MPV 7.3 L, Lymphocytes % 20.6 L, Neutrophils # 12.7 H, Lymphocytes # 3.7 H, Monocytes # 1.3 H Microbiology - Entire Visit 10/14/20 01:01 Venous blood - Left Arm Blood Culture - Final NO GROWTH IN 5 DAYS 10/14/20 01:01 Venous blood - Right Arm Blood Culture - Final NO GROWTH IN 5 DAYS Vitals: Vital Signs (12 hours) Temp Pulse Resp BP Pulse Ox 10/29/20 08:00 98.0 F 101 H 24 H 117/63 92 L 10/29/20 06:51 97 10/29/20 03:20 97.7 F 74 18 123/78 95 10/29/20 01:33 95 10/29/20 00:00 96.1 F L 88 20 124/75 98 Weight Admit Weight 131 lb 6.4 oz Weight 131 lb 6.4 oz Physical Exam: The patient was seen and examined on the day of discharge. PHYSICAL EXAM: General Appearance: Alert, oriented, resting comfortably, no apparent distress, well developed/nourished. HEENT: Normocephalic/atraumatic, moist mucous membrane, normal ENT inspection, normal tones. PERRLA, no scleral icterus, normal conjunctiva Neck: Supple, normal inspection, no JVD Respiratory: Lungs are clear bilaterally, normal breath sounds, no accessory muscle use Cardiovascular: Regular rate, regular rhythm, no murmur, no rubs Abdomen: Soft, nontender, nondistended, normal bowel sounds, no organomegaly, no guarding no rebound Back: Normal inspection, no CVA tenderness Extremities: No clubbing, no cyanosis, no edema Psych/Mental Status: Normal affect, speech, non-pressured, AAO x 3 Neurologic: CN II-XII are intact. Skin: Warm/Dry, Normal Color, no rashes Problem Time Spent in discharge related activities (mins): 35 (1) Acute respiratory failure due to COVID-19 Code(s): U07.1 - COVID-19; J96.00 - ACUTE RESPIRATORY FAILURE, UNSP W HYPOXIA OR HYPERCAPNIA Status: Acute (2) Pneumonia due to COVID-19 virus Code(s): U07.1 - COVID-19; J12.82 - PNEUMONIA DUE TO CORONAVIRUS DISEASE 2019 Status: Acute (3) Diabetes Code(s): E11.9 - TYPE 2 DIABETES MELLITUS WITHOUT COMPLICATIONS Status: Chronic Qualifiers: Diabetes mellitus type: type 2 Diabetes mellitus residential insulin use: without residential use (4) Hyponatremia Code(s): E87.1 - HYPO-OSMOLALITY AND HYPONATREMIA Status: Resolved Plan Prescriptions: Apixaban [Eliquis] 2.5 mg PO BID #60 tab predniSONE 10 mg PO QAM-WM #30 tab Home Medications: Medication Instructions Recorded Confirmed Type Benzonatate [Tessalon] 100 mg PO TID 10/14/20 10/14/20 History metFORMIN HCl [Metformin HCl] 500 mg PO BID PRN 10/14/20 10/14/20 History Apixaban [Eliquis] 2.5 mg PO BID #60 tab 10/29/20 Rx predniSONE 10 mg PO QAM-WM #30 tab 10/29/20 Rx Allergies: No Known Allergies Allergy (Verified 10/14/20 03:46) Activity:: Activity as Tolerated Equipment/Supplies:: Oxygen Referrals: [facility] [Primary Care Provider] - Disposition: HOME Quality CORE MEASURES:: N/A
[2020-10-29] MEDS: HumaLOG 300 UNITS/3 ML VIAL SC PRN (11:38)
[2020-10-29 12:37] VITALS: BP 155/81; TEMP 98.3
== END 2020-10-29 15:45 | disposition home or self-care (01) | DRG 871 ==
LOC: ERS 18:07 → OBSVTOIN 23:19 → 2SW 23:19 → UNDOADMOB 23:33
PROVIDERS: ADMIT Student in an Organized Health Care Education/Training Program; ATTEND Family Medicine
DX: A41.89 Other specified sepsis (principal); U07.1 COVID-19; J12.82 Pneumonia due to coronavirus disease 2019; J96.01 Acute respiratory failure with hypoxia; E87.1 Hypo-osmolality and hyponatremia; M62.82 Rhabdomyolysis; I10 Essential (primary) hypertension; E11.9 Type 2 diabetes mellitus without complications; F32.9 Major depressive disorder, single episode, unspecified; Z79.899 Other long term (current) drug therapy; Z79.4 Long term (current) use of insulin; Z79.01 Long term (current) use of anticoagulants
CPT/HCPCS: 36415; 36416; 71046; 71275; 76536; 80048; 80053; 82550; 82728; 84484; 85025; 85379; 86140; 87040; 93005; 93010; 94760; 96365; 96366; 96375; J0692; J1100; J1650; J1815; J1956; J3490; Q9967